=== PATIENT | female | born 1960 | race African-American/Black ===

== ENCOUNTER 2017-05-09 21:47 | Emergency (ER) | payer MEDICAID ==
[~2017-05-09] VITALS: Ht 175.3 cm; Wt 122.5 kg
[2017-05-09 22:42] LABS: Basophils # (auto) 0 uL; Basophils % (auto) 0.4 % (0.0-2.0); Eosinophils # (auto) 0.1 uL; Hematocrit 38.3 % (36.0-46.0); Hemoglobin 12.4 g/dL (12.2-16.2); Lymphocytes # (auto) 2.7 uL; Lymphocytes % (auto) 36.3 % (10.0-50.0); Mean Corpuscular Hemoglobin 27.4 pg (28.0-32.0); Mean Corpuscular Hgb Conc. 32.5 g/dL (32.0-36.0); Mean Corpuscular Volume 84.1 fL (80.0-100.0); Mean Platelet Volume 7.1 fL (6.9-10.8); Monocytes # (auto) 0.5 uL; Monocytes % (auto) 6.5 % (0.0-12.0); Neutrophils # (auto) 4.1 uL; Neutrophils % (auto) 55.8 % (37.0-80.0); Platelet Count (auto) 290 10^3/uL (140-450); Red Cell Distribution Width 14.1 % (11.8-14.3); White Blood Cell 7.4 10^3/uL (4.4-10.8)
[2017-05-09 22:59] LABS: Albumin 3.4 g/dL (3.4-5.0); Anion Gap 7 (5-15); Blood Urea Nitrogen 16 mg/dL (7-18); Calcium 9.5 mg/dL (8.5-10.1); Carbon Dioxide 30 mmol/L (21-32); Chloride 110 mmol/L (98-107); Glucose 143 mg/dL (74-106); Sodium 147 mmol/L (136-145)
[2017-05-09 23:01] LABS: Aspartate Aminotransferase 10 U/L (15-37); BUN/Creatinine Ratio 27.1; GFR African American 135 mL/min; GFR Non-African American 112 mL/min
[2017-05-09 23:10] LABS: B-Type Natriuretic Peptide 10.29 pg/mL (0-100); Temperature: 23.7 C (20.0-25.0)
[2017-05-09 23:15] LABS: Alkaline Phosphatase 105 U/L (45-117); Bilirubin, Total 0.2 mg/dL (0.2-1.0); Total Protein 7.6 g/dL (6.4-8.2)
[2017-05-10 07:45] VITALS: BP 130/75
[2017-05-10 08:00] LABS: Urine Bilirubin Negative (Negative); Urine Blood Negative /uL (Negative); Urine Ca Oxalate Crystal MANY (None Seen); Urine Color Yellow (Yellow); Urine Glucose Normal (Normal); Urine Ketone Negative (Negative); Urine Nitrite Negative (Negative); Urine RBC 1 /hpf (0 - 4); Urine Squamous Epithelial Cell FEW /hpf (<5); Urine Urobilinogen Normal (Negative)
== END 2017-05-10 08:14 | disposition home or self-care (01) ==
LOC: ER 21:56
DX: R42 Dizziness and giddiness (principal); Z98.51 Tubal ligation status
CPT/HCPCS: 36415; 70450; 71010; 80053; 81001; 82962; 83880; 84484; 85025

== ENCOUNTER 2017-08-12 19:12 | Emergency (ER) | payer MEDICAID ==
[~2017-08-12] VITALS: Ht 175.3 cm; Wt 120.2 kg
[2017-08-13 00:46] LABS: Basophils # (auto) 0 uL; Eosinophils # (auto) 0 uL; Hematocrit 43.1 % (36.0-46.0); Hemoglobin 14.1 g/dL (12.2-16.2); Lymphocytes # (auto) 1.6 uL; Lymphocytes % (auto) 39.1 % (10.0-50.0); Mean Corpuscular Hemoglobin 26.8 pg (28.0-32.0); Mean Corpuscular Hgb Conc. 32.6 g/dL (32.0-36.0); Monocytes # (auto) 0.4 uL; Monocytes % (auto) 8.6 % (0.0-12.0); Neutrophils # (auto) 2.1 uL; Neutrophils % (auto) 51.3 % (37.0-80.0); Nucleated Red Blood Cells % 0.2 %; Platelet Count (auto) 261 10^3/uL (140-450); Red Blood Cells 5.26 10^6/uL (4.0-5.20); Red Cell Distribution Width 14.3 % (11.8-14.3); White Blood Cell 4.1 10^3/uL (4.4-10.8)
[2017-08-13 01:05] LABS: Alkaline Phosphatase 112 U/L (45-117); Anion Gap 10 (5-15); Aspartate Aminotransferase 20 U/L (15-37); BUN/Creatinine Ratio 13.2; Blood Urea Nitrogen 9 mg/dL (7-18); Carbon Dioxide 26 mmol/L (21-32); Chloride 105 mmol/L (98-107); GFR African American 114 mL/min; GFR Non-African American 94 mL/min; Glucose 95 mg/dL (74-106); Potassium 3.8 mmol/L (3.5-5.1); Sodium 141 mmol/L (136-145)
[2017-08-13 01:06] LABS: Alanine Aminotransferase 27 U/L (13-56); Albumin 3.6 g/dL (3.4-5.0); Bilirubin, Total 0.4 mg/dL (0.2-1.0); Calcium 8.8 mg/dL (8.5-10.1); Total Protein 8.2 g/dL (6.4-8.2)
[2017-08-13 06:11] VITALS: BP 125/65
[2017-08-13 06:28] LABS: Urine Bacteria FEW /hpf (None Seen); Urine Blood 1+ /uL (Negative); Urine Mucus FEW (None Seen); Urine Specific Gravity 1.023 (1.001-1.035); Urine WBC 9 /hpf (0 - 5)
[2017-08-13] MEDS ORDERED: OSELTAMIVIR 75 MG CAP PO ONE (07:15)
== END 2017-08-13 09:01 | disposition home or self-care (01) ==
LOC: ER 19:12
DX: N39.0 Urinary tract infection, site not specified (principal); J11.1 Influenza due to unidentified influenza virus with other respiratory manifestations
CPT/HCPCS: 36415; 71046; 80053; 81001; 82962; 84484; 85025; 87400; 87804; 93005

== ENCOUNTER 2023-09-27 12:58 | Emergency (ER) | payer MEDICAID ==
[~2023-09-27] VITALS: Ht 175.3 cm; Wt 117.8 kg
[2023-09-27 13:55] LABS: Basophils # (auto) 0 10 ^3/uL (0-0.2); Chloride 109 mmol/L (98-107); Eosinophils # (auto) 0 10 ^3/uL (0-0.8); Eosinophils % (auto) 0.7 % (0.0-7.0); Hemoglobin 14.1 g/dL (12.2-16.2); Lymphocytes # (auto) 2.7 10 ^3/uL (0.4-5.4); Monocytes # (auto) 0.4 10 ^3/uL (0-1.3); Potassium 3.8 mmol/L (3.5-5.1); Red Cell Distribution Width 14.4 % (11.8-14.3); Sodium 139 mmol/L (136-145)
[2023-09-27 13:56] LABS: Anion Gap 5 (5-15); Calcium 9.8 mg/dL (8.5-10.1); Carbon Dioxide 25 mmol/L (20-30)
[2023-09-27 13:57] LABS: Basophils % (auto) 0.7 % (0.0-2.0); Hematocrit 43.8 % (36.0-46.0); Lymphocytes % (auto) 44.4 % (10.0-50.0); Mean Corpuscular Hemoglobin 27.2 pg (28.0-32.0); Mean Corpuscular Hgb Conc. 32.3 g/dL (32.0-36.0); Mean Corpuscular Volume 84.3 fL (80.0-100.0); Neutrophils # (auto) 2.9 10 ^3/uL (1.6-8.6); Neutrophils % (auto) 47.2 % (37.0-80.0); Nucleated Red Blood Cells % 0.1 %
[2023-09-27 14:01] LABS: Glucose 117 mg/dL (74-106)
[2023-09-27 14:01] LABS: Urine Bacteria FEW /hpf (None Seen); Urine Blood Negative /uL (Negative); Urine Clarity Clear (Clear); Urine Color Colorless (Yellow); Urine Hyaline Cast FEW /lpf (0 - 2); Urine Mucus FEW (None Seen); Urine Protein, UAD Negative (Negative); Urine Urobilinogen Normal (Negative); Urine WBC 1 /hpf (0 - 5)
[2023-09-27 14:11] LABS: BUN/Creatinine Ratio 8.2 (10.0-20.0); Blood Urea Nitrogen < 5 mg/dL (9-23)
[2023-09-27] MEDS ORDERED: PANT40TA2 PO (15:09)
[2023-09-27 16:30] VITALS: BP 145/76; PULSE 81; RESP 16; TEMP 98; O2SAT 94
[2023-09-27] MEDS: PANTOPRAZOLE 40 MG TAB PO ONE (16:36)
== END 2023-09-27 16:38 | disposition home or self-care (01) ==
LOC: ER 12:58
DX: K29.00 Acute gastritis without bleeding (principal); K80.20 Calculus of gallbladder without cholecystitis without obstruction; Z90.710 Acquired absence of both cervix and uterus; Z79.899 Other long term (current) drug therapy
CPT/HCPCS: 36415; 74176; 80048; 81001; 85025

== ENCOUNTER 2023-12-13 12:04 | Emergency (ER) | payer MEDICAID ==
[~2023-12-13] VITALS: Ht 175.3 cm; Wt 110.3 kg
[~2023-12-13 12:04] MED LIST: PANT40TA2 PO
[2023-12-13 13:20] VITALS: BP 138/59; PULSE 80; RESP 16; TEMP 98.1; O2SAT 98
[2023-12-13 16:04] LABS: Basophils # (auto) 0 10 ^3/uL (0-0.2); Basophils % (auto) 0.5 % (0.0-2.0); Eosinophils # (auto) 0 10 ^3/uL (0-0.8); Eosinophils % (auto) 0.5 % (0.0-7.0); Hematocrit 42.9 % (36.0-46.0); Hemoglobin 13.8 g/dL (12.2-16.2); Lymphocytes # (auto) 2.7 10 ^3/uL (0.4-5.4); Lymphocytes % (auto) 33.5 % (10.0-50.0); Mean Corpuscular Hemoglobin 27.2 pg (28.0-32.0); Mean Corpuscular Hgb Conc. 32.2 g/dL (32.0-36.0); Mean Corpuscular Volume 84.4 fL (80.0-100.0); Monocytes # (auto) 0.5 10 ^3/uL (0-1.3); Monocytes % (auto) 6.1 % (0.0-12.0); Neutrophils # (auto) 4.7 10 ^3/uL (1.6-8.6); Neutrophils % (auto) 59.4 % (37.0-80.0); Nucleated Red Blood Cells % 0.1 %; Red Blood Cells 5.09 10^6/uL (4.0-5.20); Red Cell Distribution Width 14.2 % (11.8-14.3)
[2023-12-13 16:09] LABS: Urine Bacteria None Seen /hpf (None Seen)
[2023-12-13 16:43] LABS: Urine Blood Negative /uL (Negative); Urine Clarity Clear (Clear); Urine Color Yellow (Yellow); Urine Mucus FEW (None Seen); Urine Protein, UAD Negative (Negative); Urine Specific Gravity 1.025 (1.001-1.035); Urine Urobilinogen Normal (Negative); Urine WBC 1 /hpf (0 - 5); Urine pH 5.5 (5.0-9.0)
[2023-12-13] MEDS ORDERED: HYDR-4902 PO (16:58)
== END 2023-12-13 17:03 | disposition home or self-care (01) ==
LOC: ER 12:04
DX: K80.20 Calculus of gallbladder without cholecystitis without obstruction (principal); Z98.51 Tubal ligation status; Z90.710 Acquired absence of both cervix and uterus
CPT/HCPCS: 36415; 76705; 81001; 83690; 85025

== ENCOUNTER 2024-11-04 15:41 | Inpatient (IN) | payer OTHER, MEDICAID ==
[~2024-11-04] VITALS: Ht 175.3 cm; Wt 118.5 kg
[~2024-11-04 15:41] MED LIST changes: +HYDR-4902 PO
--- NOTE | 2024-11-04 16:06 | ED.PDOC ---
History of Present Illness HPI Comments 64-year-old female came to the ER stating that she has been having dizziness for the past five months on and off. Dizziness is more so since last night. Aggravated by looking up. She has not seen any physician for her dizziness. Her blood pressure on arrival was 150/112 with a heart rate of 110. Patient d enies history of hypertension diabetes. Denies chest pain. She does have shortness a breath upon walking. Denies any other symptoms. Chief Complaint: Dizziness Time Seen by MD: 15:43 Primary Care Provider: [facility] [[email or web address]] Reviewed Notes: Nurses Notes, Medications, Allergies Allergies: Coded Allergies: NO KNOWN ALLERGIES (Unverified , 08/26/12) Home Meds Active Scripts Hydrocodone-Acetaminophen (Hydrocodone Bitartrate/AC 5-325 mg) 1 Tab Tab, 1 TAB PO DAILYP PRN for 3 Days, #3 TAB 0 Refills Prov:ANNEMARIE NINA NP 12/13/23 Pantoprazole Sodium Sesquihydr (Protonix) 40 Mg Tab, 40 MG PO DAILY for 10 Days, #10 TAB Prov:TANVI HUNT MD 09/27/23 Information Source: Patient Mode of Arrival: Ambulatory Severity: Moderate Timing: Days Duration: Since onset Past Medical History PAST MEDICAL HISTORY: Denies Surgical History: BTL, Hysterectomy, Tubal Ligation LICENSED MORTICIAN History: 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 Cysts Family History Family History: Unknown Social History Smoker: Non-Smoker Alcohol: Denies ETOH Use Drugs: Denies Drug Use Lives In: Home Constitutional: denies: chills, diaphoresis, fatigue, fever, malaise, sweats, weakness, others EENTM: denies: blurred vision, double vision, ear bleeding, ear discharge, ear drainage, ear pain, ear ringing, eye pain, eye redness, hearing loss, mouth pain, mouth swelling, nasal discharge, nose bleeding, nose congestion, nose pain, photophobia, tearing, throat pain, throat swelling, voice changes, others Respiratory: denies: cough, hemoptysis, orthopnea, SOB at rest, shortness of breath, SOB with excertion, stridor, wheezing, others Cardiovascular: denies: chest pain, dizzy spells, diaphoresis, Dyspnea on exertion, edema, irregular heart beat, left arm pain, lightheadedness, palpitations, PND, syncope, others Gastrointestinal: denies: abdomen distended, abdominal pain, blood streaked bowels, constipated, diarrhea, dysphagia, difficulty swallowing, hematemesis, melena, nausea, poor appetite, poor fluid intake, rectal bleeding, rectal pain, vomiting, others Genitourinary: denies: abnormal vagina bleeding, burning, dyspareunia, dysuria, flank pain, frequency, hematuria, incontinence, pain, , vagina discharge, urgency, others Neurological: reports: dizziness; denies: fainting, headache, left sided numbness, left sided weakness, numbness, paresthesia, pre-existing deficit, right sided numbness, right sided weakness, seizure, speech problems, tingling, tremors, weakness, others Musculoskeletal: denies: back pain, gout, joint pain, joint swelling, muscle pain, muscle stiffness, neck pain, others Integumetry: denies: bruises, change in color, change in hair/nails, dryness, laceration, lesions, lumps, rash, wounds, others Allergic/Immunocompromised: denies: Difficulty Healing, Frequent Infections, Hives, Itching, others Hematologic/Lymphatic: denies: anemia, blood clots, easy bleeding, easy bruising, swollen glands, others Endocrine: denies: excessive hunger, excessive sweating, excessive thirst, excessive urination, flushing, intolerance to cold, intolerance to heat, unexplained weight gain, unexplained weight loss, others Psychiatric: denies: anxiety, bipolar disorder, depression, hopeless, panic disorder, schizophrenia, sleepless, suicidal, others Physical Exam General Appearance: Moderate Distress HEENT: Normal ENT Inspection, Pharynx Normal, TMs Normal Neck: Full Range of Motion, Non-Tender, Normal, Normal Inspection Respiratory: Chest Non-Tender, Lungs Clear, No Accessory Muscle Use, No Respiratory Distress, Normal Breath Sounds Cardiovascular: No Edema, No JVD, No Murmur, No Gallop, Normal Peripheral Pulses, Regular Rate/Rhythm Breast Exam: Deferred Gastrointestinal: No Organomegaly, Non Tender, No Pulsatile Mass, Normal Bowel Sounds, Soft Genitalia: Deferred Pelvic: Deferred Rectal: Deferred Extremities: No calf tenderness, Normal capillary refill, Normal inspection, Normal range of motion, Non-tender, No pedal edema Musculoskeletal : Apperance: Normal Neurologic: Alert, mobile patrol officer II-XII nml as Tested, No Motor Deficits, Normal Affect, Normal Mood, No Sensory Deficits Cerebellar Function: Normal Reflexes: Normal Skin: Dry, Normal Color, Warm Peripheral Pulses: 3+ Radial (R), 3+ Radial (L) Lymphatic: No Adenopathy Was a procedure done? Was a procedure done?: No EKG EKG : Pulse Rate (adult): 96 [place]: Normal Cardiac Rhythm: NSR Differential Dx Considerations may include: Hypertension Electrolyte imbalance X-Ray, Labs, Meds, VS Vital Signs Date Time Temp Pulse Resp B/P (MAP) Pulse Ox O2 Delivery O2 Flow Rate FiO2 11/04/24 16:06 96 11/04/24 15:52 96.5 109 18 150/115 (127) 96 96.5 Lab Test 11/04/24 16:07 11/04/24 15:50 Range/Units White Blood Count 5.3 4.4-10.8 10^3/uL Red Blood Count 5.11 4.0-5.20 10^6/uL Hemoglobin 13.8 12.2-16.2 g/dL Hematocrit 43.3 36.0-46.0 % Mean Corpuscular Volume 84.6 80.0-100.0 fL Mean Corpuscular Hemoglobin 27.0 L 28.0-32.0 pg Mean Corpuscular Hemoglobin Concent 31.9 L 32.0-36.0 g/dL Red Cell Distribution Width 14.4 H 11.8-14.3 % Platelet Count 295 140-450 10^3/uL Mean Platelet Volume 7.3 6.9-10.8 fL Neutrophils (%) (Auto) 58.0 37.0-80.0 % Lymphocytes (%) (Auto) 33.6 10.0-50.0 % Monocytes (%) (Auto) 6.7 0.0-12.0 % Eosinophils (%) (Auto) 0.9 0.0-7.0 % Basophils (%) (Auto) 0.8 0.0-2.0 % Neutrophils # (Auto) 3.1 1.6-8.6 10 ^3/uL Lymphocytes # (Auto) 1.8 0.4-5.4 10 ^3/uL Monocytes # (Auto) 0.4 0-1.3 10 ^3/uL Eosinophils # (Auto) 0 0-0.8 10 ^3/uL Basophils # (Auto) 0 0-0.2 10 ^3/uL Nucleated Red Blood Cells 0.1 % Sodium Level 142 136-145 mmol/L Potassium Level 4.0 3.5-5.1 mmol/L Chloride Level 107 98-107 mmol/L Carbon Dioxide Level 29 20-31 mmol/L Anion Gap 6 5-15 Blood Urea Nitrogen 11 9-23 mg/dL Creatinine 0.68 0.550-1.02 mg/dL Glomerular Filtration Rate Calc 97 >90 mL/min BUN/Creatinine Ratio 16.2 10.0-20.0 Serum Glucose 153 H 74-106 mg/dL Calcium Level 10.4 8.7-10.4 mg/dL Troponin I High Sensitivity < 3 L </=34 ng/L POC Glucose 178 H 70-106 mg/dl Patient alert. Complaining of dizziness. Blood pressure elevated. Saturation pristine on room air. No leg swelling. Has shortness a breath upon walking. Possible hypertensive cardiomyopathy. She has not been taking care of herself. Establish intravenous access. Was given clonidine. EKG reviewed does not show any acute process. CT scan of the head reviewed does not show any acute changes. Blood sugar elevated. Explained to the patient. Continue cardiac monitoring. Time of 1ST Reevaluation: 16:03 Reevaluation 1ST: Unchanged Patient Education/Counseling: Diagnosis, Treatment, Prognosis Family Education/Counseling: No Family Present Departure 1 Departure Time of Disposition: 16:04 Impression: Primary Impression: Hypertensive emergency Additional Impressions: Autonomic disorder Uncontrolled diabetes mellitus Qualified Codes: E13.65 - Other specified diabetes mellitus with hyperglycemia Hypertensive cardiomegaly Disposition: ADMITTED INPATIENT Admit to: Med Surg Condition: Guarded Critical Care Note Critical Care Time?: Yes (90 min-critical care time only) Critical care comment: High blood pressure Stability Stability form required: No Heart Score Heart Score: Heart Score Response (Comments) Value History Slightly Suspicious 0 EKG Normal 0 Age >65 2 Risk Factors 1 or 2 risk factors 1 Troponin Normal limit 0 Total 3 TANVI HUNT MD Nov 04, 2024 16:06
[2024-11-04 16:24] LABS: Basophils # (auto) 0 10 ^3/uL (0-0.2); Eosinophils # (auto) 0 10 ^3/uL (0-0.8); Hematocrit 43.3 % (36.0-46.0); Lymphocytes # (auto) 1.8 10 ^3/uL (0.4-5.4); Monocytes # (auto) 0.4 10 ^3/uL (0-1.3); Red Cell Distribution Width 14.4 % (11.8-14.3); White Blood Cell 5.3 10^3/uL (4.4-10.8)
[2024-11-04 16:26] LABS: Basophils % (auto) 0.8 % (0.0-2.0); Chloride 107 mmol/L (98-107); Eosinophils % (auto) 0.9 % (0.0-7.0); Hemoglobin 13.8 g/dL (12.2-16.2); Lymphocytes % (auto) 33.6 % (10.0-50.0); Mean Corpuscular Hgb Conc. 31.9 g/dL (32.0-36.0); Mean Corpuscular Volume 84.6 fL (80.0-100.0); Monocytes % (auto) 6.7 % (0.0-12.0); Neutrophils # (auto) 3.1 10 ^3/uL (1.6-8.6); Nucleated Red Blood Cells % 0.1 %; Platelet Count (auto) 295 10^3/uL (140-450); Red Blood Cells 5.11 10^6/uL (4.0-5.20); Sodium 142 mmol/L (136-145)
[2024-11-04 16:27] LABS: Anion Gap 6 (5-15); Carbon Dioxide 29 mmol/L (20-31)
[2024-11-04 16:28] LABS: Calcium 10.4 mg/dL (8.7-10.4)
[2024-11-04 16:32] LABS: BUN/Creatinine Ratio 16.2 (10.0-20.0); Blood Urea Nitrogen 11 mg/dL (9-23)
[2024-11-04 16:33] LABS: Glucose 153 mg/dL (74-106)
--- NOTE | 2024-11-04 16:41 | DVH ---
EXAM: CT HEAD WITHOUT CONTRAST INDICATION: Dizzy TECHNIQUE: CT of the head without intravenous contrast. Coronal and sagittal reformatted images are s ubmitted. Radiation Dose : 1. Head: CT Dose: CTDI volume is 54.28 mGy. Dose-length product is 978.84 mGy*cm The dose indicators for CT are the volume Computed Tomography (CT) Dose Index (CTDIvol) and the Dose Length Product (DLP), and are measured in units of mGy and mGy-cm, respectively. These indicators are not patient dose, but values generated from the CT scanner acquisition factors. The report includes radiation exposure data for exposures received during this examination. All CT scans at this medical facility are performed using dose modulation techniques as appropriate to a performed exam including the following: Automated exposure control was utilized; adjustment of the MA and/or KV according to patient size; and use of iterative reconstruction technique. COMPARISON: None FINDINGS: There is no evidence of acute intracranial hemorrhage, extra-axial collection, mass effect, midline s hift, herniation or hydrocephalus. The ventricles, sulci and cisterns are age appropriate. The low-white differentiation is intact. The visualized paranasal sinuses and mastoid air cells are clear. No depressed calvarial fracture. The surrounding soft tissues are unremarkable. IMPRESSION: 1. No evidence of acute intracranial abnormality. HS:Y
--- NOTE | 2024-11-04 19:00 | ECG ---
[facility] Test Date: 2024-11-04 Test Time: 15:56:42 Pat Name: MICHEAL ODOM Department: ER Room: 0298 Gender: F Cotton Tier: [place] : 1960 Requested By: TANIV HUNT Order Number: [id number] Reading MD: Flaco Ahmadi Measurements Intervals [place] Rate: 96 P: 55 FL: 169 QRS: 17 QRSD: 91 T: 38 QT: 350 QTc: 443 Interpretive Statements Sinus rhythm Abnormal R-wave progression, early transition Electronically Signed On 11-07-2024 20:56:09 PDT by Flaco Ahmadi Please click the below link to view image of tracing.
[2024-11-04] MEDS: cloNIDine HCL 0.1 MG TAB PO ONE (19:59)
--- NOTE | 2024-11-04 20:20 | DVHHP2 ---
Admitting Diagnosis: Dizziness History of Present Illness 64-year-old female came to the ER stating that she has been having dizziness for the past five months on and off. Dizziness is more so since last night. Aggravated by looking up. She has not seen any physician for her dizziness. Her blood pressure on arrival was 150/112 with a heart rate of 110. Patient denies history of hypertension diabetes. Denies chest pain. She does have shortness a breath upon walking. Denies any other symptoms. PAST MEDICAL HISTORY: Denies Surgical History: BTL, Hysterectomy, Tubal Ligation SUTURE WINDER HAND History: Ovarian Cysts Family History Family History: Unknown Social History Smoker: Non-Smoker Alcohol: Denies ETOH Use Drugs: Denies Drug Use Lives In: Home Allergies: Coded Allergies: NO KNOWN ALLERGIES (Unverified , 08/26/12) Home Meds Active Scripts Hydrocodone-Acetaminophen (Hydrocodone Bitartrate/AC 5-325 mg) 1 Tab Tab, 1 TAB PO DAILYP PRN for 3 Days, #3 TAB 0 Refills Prov:ANNEMARIE NINA NP 12/13/23 Pantoprazole Sodium Sesquihydr (Protonix) 40 Mg Tab, 40 MG PO DAILY for 10 Days, #10 TAB Prov:TANVI HUNT MD 09/27/23 Vital Signs Vital Signs Date Time Temp Pulse Resp B/P (MAP) Pulse Ox O2 Delivery O2 Flow Rate FiO2 11/04/24 19:59 139/74 11/04/24 19:50 97.0 101 15 98 97.0 Physical Exam Generally 64 years old woman, morbidly obese, sitting on chair. No apparent distress HEENT-atraumatic, normocephalic Heart-regular rate and rhythm Lungs clear to auscultate bilaterally Abdomen soft nontender nondistended Musculoskeletal-no edema cyanosis Neuro-AO x3, strength intact, sensory intact Results Labs Test 11/04/24 16:07 11/04/24 15:50 Range/Units White Blood Count 5.3 4.4-10.8 10^3/uL Red Blood Count 5.11 4.0-5.20 10^6/uL Hemoglobin 13.8 12.2-16.2 g/dL Hematocrit 43.3 36.0-46.0 % Mean Corpuscular Volume 84.6 80.0-100.0 fL Mean Corpuscular Hemoglobin 27.0 L 28.0-32.0 pg Mean Corpuscular Hemoglobin Concent 31.9 L 32.0-36.0 g/dL Red Cell Distribution Width 14.4 H 11.8-14.3 % Platelet Count 295 140-450 10^3/uL Mean Platelet Volume 7.3 6.9-10.8 fL Neutrophils (%) (Auto) 58.0 37.0-80.0 % Lymphocytes (%) (Auto) 33.6 10.0-50.0 % Monocytes (%) (Auto) 6.7 0.0-12.0 % Eosinophils (%) (Auto) 0.9 0.0-7.0 % Basophils (%) (Auto) 0.8 0.0-2.0 % Neutrophils # (Auto) 3.1 1.6-8.6 10 ^3/uL Lymphocytes # (Auto) 1.8 0.4-5.4 10 ^3/uL Monocytes # (Auto) 0.4 0-1.3 10 ^3/uL Eosinophils # (Auto) 0 0-0.8 10 ^3/uL Basophils # (Auto) 0 0-0.2 10 ^3/uL Nucleated Red Blood Cells 0.1 % Sodium Level 142 136-145 mmol/L Potassium Level 4.0 3.5-5.1 mmol/L Chloride Level 107 98-107 mmol/L Carbon Dioxide Level 29 20-31 mmol/L Anion Gap 6 5-15 Blood Urea Nitrogen 11 9-23 mg/dL Creatinine 0.68 0.550-1.02 mg/dL Glomerular Filtration Rate Calc 97 >90 mL/min BUN/Creatinine Ratio 16.2 10.0-20.0 Serum Glucose 153 H 74-106 mg/dL Calcium Level 10.4 8.7-10.4 mg/dL Troponin I High Sensitivity < 3 L </=34 ng/L POC Glucose 178 H 70-106 mg/dl Primary Diagnosis Hypertensive encephalopathy Anxiety Plan Patient states she does not take blood pressure medication at home. The patient's blood pressure normally within normal range with a history of hypertension Patient states she was asked to get elective surgery regular rate and cholecystectomy due to constant right upper quadrant pain. Patient states that currently she is in pain which exacerbated pressure Blood pressure currently 130 over 70s. The patient did not receive antihypertensive medication in ED Pain control Hold off antihypertensives Bowel regimen Antiemetic Monitor blood pressure Cardiac diet Full code Lovenox for DVT prophylaxis Plan discussed with: Patient Problems List: (1) Hypertensive encephalopathy Date of Service: Nov 04, 2024 Billing Provider: DENISHA CHONG MD Common Visit Codes: [id number] INP/OBS CARE (MOD) DENISHA CHONG MD Nov 04, 2024 20:20
[2024-11-04] MEDS ORDERED: DOCUSATE SOD 100 MG CAP PO PRN (20:30)
[2024-11-04] MEDS ORDERED: HYDROmorphone HCL 2 MG/ML VL/or syr IV PRN (20:30)
[2024-11-04] MEDS ORDERED: ONDANSETRON HCL 4 MG/2 ML VIAL IV PRN (20:30)
[2024-11-04] MEDS ORDERED: ACETAMINOPHEN 325 MG TAB PO PRN (20:30)
[2024-11-04] MEDS: SODIUM CHLOR 0.9% PF (SALINE LOCK) 10ML VIAL/SYR IV SCH (22:00)
[2024-11-05 06:26] LABS: Basophils # (auto) 0 10 ^3/uL (0-0.2); Basophils % (auto) 0.4 % (0.0-2.0); Eosinophils # (auto) 0.1 10 ^3/uL (0-0.8); Eosinophils % (auto) 1.1 % (0.0-7.0); Hematocrit 44.7 % (36.0-46.0); Hemoglobin 14.5 g/dL (12.2-16.2); Lymphocytes # (auto) 2.6 10 ^3/uL (0.4-5.4); Lymphocytes % (auto) 36.2 % (10.0-50.0); Mean Corpuscular Hemoglobin 27.3 pg (28.0-32.0); Mean Corpuscular Hgb Conc. 32.4 g/dL (32.0-36.0); Mean Corpuscular Volume 84.3 fL (80.0-100.0); Monocytes # (auto) 0.5 10 ^3/uL (0-1.3); Monocytes % (auto) 6.6 % (0.0-12.0); Neutrophils # (auto) 3.9 10 ^3/uL (1.6-8.6); Neutrophils % (auto) 55.7 % (37.0-80.0); Nucleated Red Blood Cells % 0.3 %; Platelet Count (auto) 300 10^3/uL (140-450); Red Cell Distribution Width 14.2 % (11.8-14.3); White Blood Cell 7.1 10^3/uL (4.4-10.8)
[2024-11-05 06:30] LABS: Alanine Aminotransferase 17 U/L (7-40); Alkaline Phosphatase 115 U/L (46-116); Anion Gap 9 (5-15); BUN/Creatinine Ratio 16.1 (10.0-20.0); Carbon Dioxide 26 mmol/L (20-31); Chloride 105 mmol/L (98-107); Potassium 3.7 mmol/L (3.5-5.1); Sodium 140 mmol/L (136-145); Total Protein 8.1 g/dL (5.7-8.2)
[2024-11-05 06:31] LABS: Aspartate Aminotransferase 13 U/L (13-40); Bilirubin, Total 0.6 mg/dL (0.2-1.0)
[2024-11-05 06:35] LABS: Albumin 4.9 g/dL (3.2-4.8); Blood Urea Nitrogen 9 mg/dL (9-23); Calcium 10.4 mg/dL (8.7-10.4); Glucose 111 mg/dL (74-106)
[2024-11-05 08:02] VITALS: PULSE 88; RESP 17; O2SAT 96
[2024-11-05] MEDS: ENOXAPARIN SOD 40 MG/0.4 ML SYRINGE SC SCH (11:58)
[2024-11-05 12:46] LABS: Urine Bacteria None Seen /hpf (None Seen)
[2024-11-05 12:56] LABS: Urine Blood Negative /uL (Negative); Urine Clarity Clear (Clear); Urine Color Light-Yellow (Yellow); Urine Protein, UAD Negative (Negative); Urine Specific Gravity 1.013 (1.001-1.035); Urine Squamous Epithelial Cell FEW /hpf (<5); Urine Urobilinogen Normal (Negative); Urine WBC 13 /HPF (0-5); Urine pH 6.5 (5.0-9.0)
--- NOTE | 2024-11-05 14:26 | DVH ---
INDICATION: rule out acute cholecystitis TECHNIQUE: Multiple real-time sonographic images were obtained of the right upper quadrant. COMPARISON: US ABDOMEN LIMITED on DOS: 12/13/23 FINDINGS: The liver demonstrates heterogeneous echotexture without focal mass lesions. The liver davian ures 20cm. There is no intrahepatic or extrahepatic ductal dilatation. The common duct measures 0. 5 mm. Gallstones are present The gallbladder wall measures 0.3 mm and is within normal limits. The right kidney measures 13 cm. The right kidney is normal in contour, size, and shape. The echogen icity is normal. There is no hydronephrosis. The pancreas is not well visualized due to overlying bowel gas. IMPRESSION: Cholelithiasis Hepatic steatosis/hepatomegaly. Trace right pleural effusion.
--- NOTE | 2024-11-05 14:56 | DVHPNRES ---
Progress Note Date Seen: Nov 05, 2024 Resident Creating Document: KELLIE CARPENTER RESIDENT Has the PT tested + for MRSA If YES, has PT been informed?: No Medical Necessity Reason Pt with a Central, PICC or Fol: No Medical Necessity Reason History of Present Illness 64-year-old female came to the ER stating that she has been having dizziness for the past five months on and off. Dizziness is more so since last night. Aggravated by looking up. She has not seen any physician for her dizziness. Her blood pressure on arrival was 150/112 with a heart rate of 110. She mentioned to me that she has blurry vision. Patient denies history of hypertension diabetes. Denies chest pain. She does have shortness a breath upon walking. PAST MEDICAL HISTORY: With the cholecystitis, diverticulitis, neck pain, peripheral neuropathy Surgical History: BTL, Hysterectomy, Tubal Ligation EVENT SET UP SPECIALIST History: Ovarian Cysts Subjective Review of Systems Constitutional: Denies fever no chills no feeling of malaise HEENT: Denies headache, ear pain, ear discharges, conjunctivitis, nasal discharge throat pain Cardiovascular: Denies chest pain, palpitation, orthopnea, PND, or pedal edema Respiratory: Denies shortness of breath, cough cough, sputum production, hemoptysis, GI: Right tip of the shoulder pain, Abdominal pain resolved, nausea, No vomiting, diarrhea, hematemesis, hematochezia, : Denies frequency, urgency, hematuria, Endocrine: Denies unintentional weight gain or weight loss, feeling of hot flashes, Elder: Denies easy bruising, bleeding disorders, epistaxis Musculoskeletal: Denies joint pains, muscle aches Psych: No evidence of depression, domenica, suicidal ideation Objective vital signs Vital Sign Date Time Temp Pulse Resp B/P (MAP) Pulse Ox O2 Delivery O2 Flow Rate FiO2 11/05/24 11:48 116 189/107 11/05/24 08:02 98.5 17 96 98.5 11/05/24 08:02 Room Air* 0 21 medications Current Medications Medications Dose Ordered Sig/Jhon Route Start Time Stop Time Status Last Admin Dose Admin Sodium Chloride 10 ml Q8HR IV 11/04/24 22:00 11/05/24 06:06 10 ML Docusate Sodium 100 mg BIDPRN PRN PO 11/04/24 20:30 Acetaminophen 650 mg Q6HP PRN PO 11/04/24 20:30 Acetaminophen/ Hydrocodone Bitart 1 tab Q4HP PRN PO 11/04/24 20:30 Hydromorphone HCl 0.5 mg Q4HP PRN IV 11/04/24 20:30 Ondansetron HCl 4 mg Q4HP PRN IV 11/04/24 20:30 Enoxaparin Sodium 40 mg DAILY SC 11/05/24 10:00 11/05/24 11:58 40 MG Lisinopril 5 mg DAILY PO 11/06/24 10:00 Examination General Appearance: Alert, Oriented X3, Cooperative, No acute distress, Dizziness on walking HEENT: Atraumatic, PERRLA, EOMI, Mucous membrane moist/pink Respiratory: Clear to auscultation, Normal air movement Cardiovascular: Regular rate, Normal S1, Normal S2, No murmurs, no chest wall tenderness Abdominal: NO distention, no tenderness, bowel sounds present, no scars noted Extremities: No clubbing, No cyanosis, No edema, Normal pulses, No tenderness/swelling Skin: No rashes, No breakdown, No significant lesion Neuro: Normal gait, Normal speech, Strength at 5/5 X4 ext, Normal tone, Sensation intact, Cranial nerves 3-12 NL, Reflexes 2+ Psych/Mental Status: Mental status NL, Mood NL laboratory and microbiology Laboratory Tests 11/05/24 05:45 Test 11/05/24 05:45 Range/Units Serum Glucose 111 H 74-106 mg/dL Problem List/Assessment/Plan Problem List/Assessment/Plan Assessment Hypertensive urgency --> lisinopril 5 mg daily --> monitor closely and increase the blood pressure medication as needed Dizziness --> currently on meclizine --> fairly be secondary to the hypertensive urgency as well we will monitor closely as the blood pressure comes down. Cholelithiasis --> follow up with the surgeon outpatient for surgical evaluation and removal of the gallbladder -->Currently not inflamed Obesity Grade 2 --> BMI: 37.4 --> Advise more healthy life style modification Asymptomatic pyuria Of care discussed more than 40 20 minutes: Full code Case and plan discussed with Dr. Roberson Plan discussed with: Patient My Orders My Orders Orders - KELLIE CARPENTER RESIDENT Procedure Category Date Status Time Gallbladder US 11/05/24 Resulted 12:35 Lisinopril Tablet PHA 11/06/24 In Process (Zestril Tablet) 10:00 Echo 2d Mode Cardiac US 11/05/24 Logged DOP 12:50 Date of Service: Nov 05, 2024 Billing Provider: MEME ROBERSON MD Common Visit Codes: [id number] INP/OBS CARE(HIGH) KELLIE CARPENTER RESIDENT Nov 05, 2024 14:56 MEME ROBERSON MD Nov 07, 2024 22:10
[2024-11-05] MEDS: LISINOPRIL 5 MG TAB PO ONE (18:35)
[2024-11-05 19:05] VITALS: BP_SYST 115; BP_SYST 99; BP_DIAS 65; BP_DIAS 67; PULSE 82; PULSE 99; RESP 17; RESP 18; TEMP 97.5; TEMP 98.4; O2SAT 93; O2SAT 97
[2024-11-05 21:00] VITALS: BP 113/67; PULSE 80; RESP 18; TEMP 97.6; O2SAT 96
[2024-11-05 22:30] VITALS: BP 143/81; PULSE 91; RESP 16; TEMP 98.2; O2SAT 99
[2024-11-06] VITALS (9 sets, daily range): BP systolic 99–130; BP diastolic 59–91; PULSE 61–102; RESP 16–20; TEMP 97.7–98.7; O2SAT 93–98
[2024-11-06] MEDS ORDERED: MECL-90 PO (00:30)
[2024-11-06] MEDS ORDERED: IBUP-1455 PO (00:30)
[2024-11-06] MEDS ORDERED: MECL-126 PO (00:30)
[2024-11-06 08:42] LABS: Basophils # (auto) 0 10 ^3/uL (0-0.2); Basophils % (auto) 0.3 % (0.0-2.0); Eosinophils # (auto) 0.1 10 ^3/uL (0-0.8); Eosinophils % (auto) 0.8 % (0.0-7.0); Hematocrit 43.1 % (36.0-46.0); Hemoglobin 14.3 g/dL (12.2-16.2); Lymphocytes # (auto) 2.8 10 ^3/uL (0.4-5.4); Lymphocytes % (auto) 38.2 % (10.0-50.0); Mean Corpuscular Hemoglobin 27.8 pg (28.0-32.0); Mean Corpuscular Hgb Conc. 33.1 g/dL (32.0-36.0); Monocytes # (auto) 0.4 10 ^3/uL (0-1.3); Neutrophils # (auto) 4.1 10 ^3/uL (1.6-8.6); Neutrophils % (auto) 55.7 % (37.0-80.0); Nucleated Red Blood Cells % 0.1 %; Platelet Count (auto) 296 10^3/uL (140-450); Red Blood Cells 5.13 10^6/uL (4.0-5.20); Red Cell Distribution Width 14.3 % (11.8-14.3); White Blood Cell 7.4 10^3/uL (4.4-10.8)
[2024-11-06 08:57] LABS: Alanine Aminotransferase 16 U/L (7-40); Albumin 4.5 g/dL (3.2-4.8); Alkaline Phosphatase 114 U/L (46-116); Anion Gap 10 (5-15); Aspartate Aminotransferase 13 U/L (13-40); BUN/Creatinine Ratio 15.6 (10.0-20.0); Bilirubin, Total 0.7 mg/dL (0.2-1.0); Blood Urea Nitrogen 10 mg/dL (9-23); Calcium 10.1 mg/dL (8.7-10.4); Carbon Dioxide 26 mmol/L (20-31); Chloride 106 mmol/L (98-107); Potassium 3.6 mmol/L (3.5-5.1); Sodium 142 mmol/L (136-145); Total Protein 7.4 g/dL (5.7-8.2)
[2024-11-06 08:58] LABS: Glucose 127 mg/dL (74-106)
[2024-11-06] MEDS: ACETAMINOPHEN 325 MG TAB PO ONE (10:27)
[2024-11-06] MEDS: LISINOPRIL 5 MG TAB PO SCH (10:28)
[2024-11-06] MEDS: SODIUM CHLORIDE 0.9% 1,000 ML IV SCH ×2 (10:37→18:05)
--- NOTE | 2024-11-06 10:54 | DVH ---
Exam: CT CT AB PEL WO CON-NO ORAL OR IV History: rule acute diverticulitis Comparison Study: CT CT AB PEL WO CON-NO ORAL OR IV on DOS: 09/27/23 Technique: Multidetector spiral CT of the abdomen and pelvis was performed from lung bases to pubic symphysis. Imaging was performed without IV contrast. Axial, coronal and sagittal multiplanar reform ats were obtained from the axial data set by the technologist. Radiation dose : Abdomen/Pelvis: CTDIvol 26.76 mGy, DLP 1484.0 mGy*cm. Findings: Evaluation of solid organs is limited due to lack of intravenous contrast use. Lung Bases: No acute or significant lung base finding. Normal heart size. No pleural or pericardial effusion. Liver: The liver is normal in size. No focal lesions. Gallbladder and biliary Tree: Cholelithiasis noted without secondary findings of cholecystitis or rama iary obstruction. Spleen: Unremarkable Pancreas: The pancreas is grossly normal in appearance. Adrenal Glands: Right adrenal nodules measuring 20 mm and 10 mm. Kidneys: Kidneys are grossly normal without calculi or hydronephrosis. Bladder: Grossly unremarkable for degree of distention. Bowel: The stomach is grossly normal in appearance. There is mild wall thickening of the descending c olon with adjacent stranding. There is an abnormal loop of small bowel in the right upper quadrant w ith wall thickening, adjacent stranding and adjacent prominent mesenteric lymph nodes. Normal appendi x is visualized in the right lower quadrant without findings of appendicitis. Ascites: Trace perisplenic ascites. Lymphadenopathy: Prominent mesenteric lymph nodes, largest measuring up to 10 mm in short axis. Abdominal wall and Mesentery: Postsurgical changes. Vasculature: The visualized abdominal aorta is normal in size and caliber. Evaluation of abdominal a nd pelvic vessels is limited due to lack of intravenous contrast. Pelvic Organs: Unremarkable Musculoskeletal: No aggressive focal bony lesions, acute fractures or dislocation. IMPRESSION: 1. Abnormal loop of small bowel in the right upper quadrant with associated wall thickening, mesenter ic stranding, and mesenteric lymphadenopathy. Findings could be infectious / inflammatory. Underlying neoplasm is not entirely excluded. Clinical correlation and continued follow-up is recommended. Thi s could be further evaluated with intravenous and/or oral contrast. Consider small-bowel follow-throu gh. 2. Mild wall thickening of the descending colon with adjacent stranding could be related to colitis or underdistention. Trace perisplenic ascites. Cholelithiasis. Stable right adrenal nodules. Radiation optimization: All CT scans at this facility use at least one of these dose optimization kashmir hniques: Automated exposure control mA and/or kV adjustment per patient size (includes targeted exams where dose is matched to clinical indication) or iterative reconstruction. HS:Y
[2024-11-06] MEDS: cefTRIAXone 1GM/50ML D5W 50 ML IV ONE (18:05)
--- NOTE | 2024-11-06 18:29 | DVHPNRES ---
Progress Note Date Seen: Nov 06, 2024 Resident Creating Document: KELLIE CARPENTER RESIDENT Has the PT tested + for MRSA If YES, has PT been informed?: No Medical Necessity Reason Pt with a Central, PICC or Fol: No Medical Necessity Reason PN 11/05/2024 64-year-old female came to the ER stating that she has been having dizziness for the past five months on and off. Dizziness is more so since last night. Aggravated by looking up. She has not seen any physician for her dizziness. Her blood pressure on arrival was 150/112 with a heart rate of 110. She mentioned to me that she has blurry vision. Patient denies history of hypertension diabetes. Denies chest pain. She does have shortness a breath upon walking. 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 Patient initially presented with dizziness and head. Patient found to have hypertensive urgency. This morning her HTN was better, but the patient complained about left lower abdomen. CT abdomen revealed Abnormal loop of small bowel in the right upper quadrant with associated wall thickening, mesenteric stranding, and mesenteric lymphadenopathy. Findings could be infectious / inflammatory. Underlying neoplasm is not entirely excluded. Clinical correlation and continued follow-up is recommended. This could be further evaluated with intravenous and/or oral contrast. Consider small-bowel follow-through. Mild wall thickening of the descending colon with adjacent stranding could be related to colitis or underdistention. Trace perisplenic ascites. Will start her on antibiotics. Subjective Review of Systems Constitutional: Denies fever no chills no feeling of malaise, headache HEENT: Denies headache, ear pain, ear discharges, conjunctivitis, nasal discharge throat pain Cardiovascular: Denies chest pain, palpitation, orthopnea, PND, or pedal edema Respiratory: Denies shortness of breath, cough cough, sputum production, hemoptysis, GI: Denies abdominal pain, nausea, vomiting, diarrhea, hematemesis, hematochezia, left lower quadrant pain : Denies frequency, urgency, hematuria, Endocrine: Denies unintentional weight gain or weight loss, feeling of hot flashes, Elder: Denies easy bruising, bleeding disorders, epistaxis Musculoskeletal: Denies joint pains, muscle aches Psych: No evidence of depression, domenica, suicidal ideation Objective vital signs Vital Sign Date Time Temp Pulse Resp B/P (MAP) Pulse Ox O2 Delivery O2 Flow Rate FiO2 11/06/24 16:17 98.7 76 18 95 11/06/24 13:00 130/73 (92) 11/06/24 08:00 Room Air* 0 21 Total Intake and Output 11/05/24 11/05/24 11/06/24 15:00 23:00 07:00 Intake Total 100 ml Balance 100 ml medications Current Medications Medications Dose Ordered Sig/John Route Start Time Stop Time Status Last Admin Dose Admin Sodium Chloride 10 ml Q8HR IV 11/04/24 22:00 11/06/24 13:40 10 ML Docusate Sodium 100 mg BIDPRN PRN PO 11/04/24 20:30 Acetaminophen 650 mg Q6HP PRN PO 11/04/24 20:30 Cancel Acetaminophen/ Hydrocodone Bitart 1 tab Q4HP PRN PO 11/04/24 20:30 Hydromorphone HCl 0.5 mg Q4HP PRN IV 11/04/24 20:30 Ondansetron HCl 4 mg Q4HP PRN IV 11/04/24 20:30 Enoxaparin Sodium 40 mg DAILY SC 11/05/24 10:00 11/06/24 10:28 40 MG Lisinopril 5 mg DAILY PO 11/06/24 10:00 11/06/24 10:28 5 MG Acetaminophen 325 mg Q4HP PRN PO 11/06/24 08:00 Sodium Chloride 1,000 ml @ 125 mls/hr Q8H IV 11/06/24 08:00 11/06/24 16:10 125 MLS/HR Examination General Appearance: Alert, Oriented X3, Cooperative, No acute distress HEENT: Atraumatic, PERRLA, EOMI, Mucous membrane moist/pink Respiratory: Clear to auscultation, Normal air movement Cardiovascular: Regular rate, Normal S1, Normal S2, No murmurs, no chest wall tenderness Abdominal: Left lower quadrant tenderness, bowel sounds present Extremities: No clubbing, No cyanosis, No edema, Normal pulses, No tenderness/swelling Skin: No rashes, No breakdown, No significant lesion Neuro: Normal gait, Normal speech, Strength at 5/5 X4 ext, Normal tone, Sensation intact, Cranial nerves 3-12 NL, Reflexes 2+ Psych/Mental Status: Mental status NL, Mood NL laboratory and microbiology Laboratory Tests 11/06/24 07:16 Test 11/06/24 07:16 Range/Units Serum Glucose 127 H 74-106 mg/dL Problem List/Assessment/Plan Problem List/Assessment/Plan Assessment Hypertensive urgency--> Improved --> Continue lisinopril 5 mg daily --> monitor closely and increase the blood pressure medication as needed Dizziness --> Continue on meclizine --> Likely secondary to the hypertensive urgency as well we will monitor closely as the blood pressure comes down. Cholelithiasis --> follow up with the surgeon outpatient for surgical evaluation and removal of the gallbladder -->Currently not inflamed --> Follow up with the surgeon outpatient for elective cholecystectomy Obesity Grade 2 --> BMI: 37.4 --> Advise more healthy life style modification Asymptomatic pyuria Possible colitis vs ?neoplasm -->CT abdomen: Abnormal loop of small bowel in the right upper quadrant with associated wall thickening, mesenteric stranding, and mesenteric lymphadenopathy. Findings could be infectious / inflammatory. Underlying neoplasm is not entirely excluded. Clinical correlation and continued follow-up is recommended. This could be further evaluated with intravenous and/or oral contrast. Consider small-bowel follow-through. Mild wall thickening of the descending colon with adjacent stranding could be related to colitis or underdistention. Trace perisplenic ascites. --> Ceftriaxone and Metronidazole --> NPO --> Consider GI consult Hepatic steatosis/hepatomegaly -> Encourage weight Of care discussed more than 20 minutes: Full code Case and plan discussed with Dr. Roberson Plan discussed with: Patient My Orders My Orders Orders - KELLIE CARPENTER RESIDENT Procedure Category Date Status Time Ct Ab Pel Wo Con-No CT 11/06/24 Resulted Oral Or Iv 08:00 Acetaminophen Tablet PHA 11/06/24 In Process (Tylenol Tablet) 08:00 Sodium Chloride 0.9% PHA 11/06/24 In Process 08:00 Schedule For Dc SHAQ 11/06/24 In Process Clinic F/U 15:09 Ceftriaxone 1gm/50ml PHA 11/06/24 In Process D5w (Rocephin) 18:00 Ceftriaxone 1gm/50ml PHA 11/07/24 In Process D5w (Rocephin) 09:00 Metronidazole PHA 11/06/24 In Process 500mg/100ml (Flagyl 18:30 Sodium Chloride 0.9% PHA 11/06/24 In Process 18:00 Npo (Nothing By DIET 11/06/24 Transmitted Mouth) Diet Dinner Lipase LAB 11/06/24 Logged 17:50 Metronidazole PHA 11/07/24 In Process 500mg/100ml (Flagyl 02:00 Date of Service: Nov 06, 2024 Billing Provider: MEME ROBERSON MD Common Visit Codes: [id number] INP/OBS CARE(HIGH) KELLIE CARPENTER RESIDENT Nov 06, 2024 18:29 MEME ROBERSON MD Nov 07, 2024 22:24
[2024-11-06] MEDS: metroNIDAZOLE 500MG/100ML 100 ML IV ONE (18:30)
[2024-11-06] MEDS: ACETAMINOPHEN 325 MG TAB PO PRN (21:25)
[2024-11-07 01:00] VITALS: BP 115/69; PULSE 74; RESP 18; TEMP 98.6; O2SAT 98
[2024-11-07] MEDS: metroNIDAZOLE 500MG/100ML 100 ML IV SCH (02:20)
[2024-11-07 05:00] VITALS: BP 107/53; PULSE 69; RESP 18; TEMP 98.3; O2SAT 84
[2024-11-07 08:44] VITALS: BP 103/60; PULSE 6; PULSE 60; RESP 19; TEMP 98.6; O2SAT 94
[2024-11-07 09:06] LABS: Basophils # (auto) 0 10 ^3/uL (0-0.2); Basophils % (auto) 0.5 % (0.0-2.0); Eosinophils # (auto) 0.1 10 ^3/uL (0-0.8); Eosinophils % (auto) 1.3 % (0.0-7.0); Hematocrit 41.1 % (36.0-46.0); Hemoglobin 12.9 g/dL (12.2-16.2); Lymphocytes % (auto) 45.4 % (10.0-50.0); Mean Corpuscular Hgb Conc. 31.4 g/dL (32.0-36.0); Mean Corpuscular Volume 85.8 fL (80.0-100.0); Monocytes # (auto) 0.5 10 ^3/uL (0-1.3); Monocytes % (auto) 7.6 % (0.0-12.0); Neutrophils % (auto) 45.2 % (37.0-80.0); Nucleated Red Blood Cells % 0.1 %; Platelet Count (auto) 268 10^3/uL (140-450); Red Blood Cells 4.79 10^6/uL (4.0-5.20); Red Cell Distribution Width 14.3 % (11.8-14.3); White Blood Cell 6.6 10^3/uL (4.4-10.8)
[2024-11-07 09:18] LABS: Alanine Aminotransferase 16 U/L (7-40); Alkaline Phosphatase 107 U/L (46-116); Anion Gap 8 (5-15); Aspartate Aminotransferase 15 U/L (13-40); BUN/Creatinine Ratio 20.4 (10.0-20.0); Blood Urea Nitrogen 11 mg/dL (9-23); Calcium 9.5 mg/dL (8.7-10.4); Carbon Dioxide 25 mmol/L (20-31); Potassium 4.2 mmol/L (3.5-5.1); Sodium 142 mmol/L (136-145); Total Protein 6.3 g/dL (5.7-8.2)
[2024-11-07 09:19] LABS: Bilirubin, Total 0.5 mg/dL (0.2-1.0); Chloride 109 mmol/L (98-107); Glucose 109 mg/dL (74-106)
[2024-11-07] MEDS: cefTRIAXone 1GM/50ML D5W 50 ML IV SCH (09:29)
[2024-11-07] MEDS: HYDROcodone-ACET 5/325MG TAB PO PRN (09:30)
[2024-11-07 13:04] VITALS: BP 113/68; PULSE 75; RESP 17; TEMP 98.4; O2SAT 96
[2024-11-07] MEDS ORDERED: ACET-1882 PO (13:35)
[2024-11-07] MEDS ORDERED: LEVO750T40 PO (13:35)
[2024-11-07] MEDS ORDERED: LISI-275 PO (13:35)
[2024-11-07] MEDS ORDERED: DOCU-265 PO (13:35)
[2024-11-07] MEDS ORDERED: METR-344 PO (13:36)
--- NOTE | 2024-11-07 14:17 | DVHDSRES ---
Discharge Summary Date of Admission Resident Creating Document: KELLIE CARPENTER RESIDENT Nov 04, 2024 at 20:20 Date of Discharge: Nov 07, 2024 Admitting Diagnosis Dizziness and hypertensive urgency Labs/Diagnostic Data: PATIENT: MICHEAL ODOM ACCT: [id number] UNIT: [id number] : 1960 LOC: [facility] ROOM / BED: [facility] / A AGE / SEX: 64 / F ADM STATUS: ADM IN SERVICE 0800 ORDERING PHYSICIAN: KELLIE CARPENTER PROCEDURE(s): ABPL - CT AB PEL WO CON-NO ORAL OR IV REASON: rule acute diverticulitis ORDER NUMBER(s): [id number], ACCESSION NUMBER(s): [id number] Exam: CT CT AB PEL WO CON-NO ORAL OR IV History: rule acute diverticulitis Comparison Study: CT CT AB PEL WO CON-NO ORAL OR IV on DOS: 09/27/23 Technique: Multidetector spiral CT of the abdomen and pelvis was performed from lung bases to pubic symphysis. Imaging was performed without IV contrast. Axial, coronal and sagittal multiplanar reformats were obtained from the axial data set by the technologist. Radiation dose : Abdomen/Pelvis: CTDIvol 26.76 mGy, DLP 1484.0 mGy*cm. Findings: Evaluation of solid organs is limited due to lack of intravenous contrast use. Lung Bases: No acute or significant lung base finding. Normal heart size. No pleural or pericardial effusion. Liver: The liver is normal in size. No focal lesions. Gallbladder and biliary Tree: Cholelithiasis noted without secondary findings of cholecystitis or biliary obstruction. Spleen: Unremarkable Pancreas: The pancreas is grossly normal in appearance. Adrenal Glands: Right adrenal nodules measuring 20 mm and 10 mm. Kidneys: Kidneys are grossly normal without calculi or hydronephrosis. Bladder: Grossly unremarkable for degree of distention. Bowel: The stomach is grossly normal in appearance. There is mild wall thickening of the descending colon with adjacent stranding. There is an abnormal loop of small bowel in the right upper quadrant with wall thickening, adjacent stranding and adjacent prominent mesenteric lymph nodes. Normal appendix is visualized in the right lower quadrant without findings of appendicitis. Ascites: Trace perisplenic ascites. Lymphadenopathy: Prominent mesenteric lymph nodes, largest measuring up to 10 mm in short axis. Abdominal wall and Mesentery: Postsurgical changes. Vasculature: The visualized abdominal aorta is normal in size and caliber. Evaluation of abdominal and pelvic vessels is limited due to lack of intravenous contrast. Pelvic Organs: Unremarkable Musculoskeletal: No aggressive focal bony lesions, acute fractures or dislocation. IMPRESSION: 1. Abnormal loop of small bowel in the right upper quadrant with associated wall thickening, mesenteric stranding, and mesenteric lymphadenopathy. Findings could be infectious / inflammatory. Underlying neoplasm is not entirely excluded. Clinical correlation and continued follow-up is recommended. This could be further evaluated with intravenous and/or oral contrast. Consider small-bowel follow-through. 2. Mild wall thickening of the descending colon with adjacent stranding could be related to colitis or underdistention. Trace perisplenic ascites. Cholelithiasis. Stable right adrenal nodules. Radiation optimization: All CT scans at this facility use at least one of these dose optimization techniques: Automated exposure control mA and/or kV adjustment per patient size (includes targeted exams where dose is matched to clinical indication) or iterative reconstruction. HS:Y ATED BY: TAHIR HAUSER MD DICTATED DATE/TIME: 11/06/24 1052 PATIENT: MICHEAL ODOM ACCT: [id number] UNIT: [id number] : 1960 LOC: [facility] ROOM / BED: [address] [place] [address] / A AGE / SEX: 64 / F ADM STATUS: ADM IN SERVICE 1235 ORDERING PHYSICIAN: KELLIE CARPENTER RESIDENT PROCEDURE(s): GBUS - GALLBLADDER REASON: rule out acute cholecystitis ORDER NUMBER(s): [id number], ACCESSION NUMBER(s): [id number] INDICATION: rule out acute cholecystitis TECHNIQUE: Multiple real-time sonographic images were obtained of the right upper quadrant. COMPARISON: US ABDOMEN LIMITED on DOS: 12/13/23 FINDINGS: The liver demonstrates heterogeneous echotexture without focal mass lesions. The liver measures 20cm. There is no intrahepatic or extrahepatic ductal dilatation. The common duct measures 0.5 mm. Gallstones are present The gallbladder wall measures 0.3 mm and is within normal limits. The right kidney measures 13 cm. The right kidney is normal in contour, size, and shape. The echogenicity is normal. There is no hydronephrosis. The pancreas is not well visualized due to overlying bowel gas. IMPRESSION: Cholelithiasis Hepatic steatosis/hepatomegaly. Trace right pleural effusion. ATED BY: LUIS YEBOAH MD DICTATED DATE/TIME: 11/05/24 1424 PATIENT: MICHEAL ODOM ACCT: [id number] UNIT: [id number] : 1960 LOC: ER ROOM / BED: / AGE / SEX: 64 / F ADM STATUS: REG ER SERVICE 1557 ORDERING PHYSICIAN: TANVI HUNT MD PROCEDURE(s): HWOCT - HEAD WITHOUT CONTRAST REASON: dizzy ORDER NUMBER(s): [id number], ACCESSION NUMBER(s): [id number] EXAM: CT HEAD WITHOUT CONTRAST INDICATION: Dizzy TECHNIQUE: CT of the head without intravenous contrast. Coronal and sagittal reformatted images are submitted. Radiation Dose : 1. Head: CT Dose: CTDI volume is 54.28 mGy. Dose-length product is 978.84 mGy*cm The dose indicators for CT are the volume Computed Tomography (CT) Dose Index (CTDIvol) and the Dose Length Product (DLP), and are measured in units of mGy and mGy-cm, respectively. These indicators are not patient dose, but values generated from the CT scanner acquisition factors. The report includes radiation exposure data for exposures received during this examination. All CT scans at this medical facility are performed using dose modulation techniques as appropriate to a performed exam including the following: Automated exposure control was utilized; adjustment of the MA and/or KV according to patient size; and use of iterative reconstruction technique. COMPARISON: None FINDINGS: There is no evidence of acute intracranial hemorrhage, extra-axial collection, mass effect, midline shift, herniation or hydrocephalus. The ventricles, sulci and cisterns are age appropriate. The low-white differentiation is intact. The visualized paranasal sinuses and mastoid air cells are clear. No depressed calvarial fracture. The surrounding soft tissues are unremarkable. IMPRESSION: 1. No evidence of acute intracranial abnormality. HS:Y ATED BY: TUNG PEDROZA MD DICTATED DATE/TIME: 11/04/24 1638 Laboratory Results Test 11/07/24 08:34 11/06/24 07:16 11/05/24 12:44 11/05/24 05:45 White Blood Count 6.6 10^3/uL (4.4-10.8) Red Blood Count 4.79 10^6/uL (4.0-5.20) Hemoglobin 12.9 g/dL (12.2-16.2) Hematocrit 41.1 % (36.0-46.0) Mean Corpuscular Volume 85.8 fL (80.0-100.0) Mean Corpuscular Hemoglobin 27.0 pg (28.0-32.0) Mean Corpuscular Hemoglobin Concent 31.4 g/dL (32.0-36.0) Red Cell Distribution Width 14.3 % (11.8-14.3) Platelet Count 268 10^3/uL (140-450) Mean Platelet Volume 7.3 fL (6.9-10.8) Neutrophils (%) (Auto) 45.2 % (37.0-80.0) Lymphocytes (%) (Auto) 45.4 % (10.0-50.0) Monocytes (%) (Auto) 7.6 % (0.0-12.0) Eosinophils (%) (Auto) 1.3 % (0.0-7.0) Basophils (%) (Auto) 0.5 % (0.0-2.0) Neutrophils # (Auto) 3.0 10 ^3/uL (1.6-8.6) Lymphocytes # (Auto) 3.0 10 ^3/uL (0.4-5.4) Monocytes # (Auto) 0.5 10 ^3/uL (0-1.3) Eosinophils # (Auto) 0.1 10 ^3/uL (0-0.8) Basophils # (Auto) 0 10 ^3/uL (0-0.2) Nucleated Red Blood Cells 0.1 % Sodium Level 142 mmol/L (136-145) Potassium Level 4.2 mmol/L (3.5-5.1) Chloride Level 109 mmol/L (98-107) Carbon Dioxide Level 25 mmol/L (20-31) Anion Gap 8 (5-15) Blood Urea Nitrogen 11 mg/dL (9-23) Creatinine 0.54 mg/dL (0.550-1.02) Glomerular Filtration Rate Calc 102 mL/min (>90) BUN/Creatinine Ratio 20.4 (10.0-20.0) Serum Glucose 109 mg/dL (74-106) Calcium Level 9.5 mg/dL (8.7-10.4) Total Bilirubin 0.5 mg/dL (0.2-1.0) Aspartate Amino Transferase (AST) 15 U/L (13-40) Alanine Aminotransferase (ALT) 16 U/L (7-40) Alkaline Phosphatase 107 U/L (46-116) Total Protein 6.3 g/dL (5.7-8.2) Albumin 4.0 g/dL (3.2-4.8) Lipase 28 U/L (12-53) Urine Color Light-yellow (Yellow) Urine Clarity Clear (Clear) Urine pH 6.5 (5.0-9.0) Urine Specific [place] 1.013 (1.001-1.035) Urine Protein Negative (Negative) Urine Ketones Negative (Negative) Urine Blood Negative /uL (Negative) Urine Nitrite Negative (Negative) Urine Bilirubin Negative (Negative) Urine Urobilinogen Normal mg/dL (Negative) Urine Leukocyte Esterase 2+ /uL (Negative) Urine RBC 1 /hpf (0 - 4) Urine Microscopic WBC 13 /HPF (0-5) Urine Squamous Epithelial Cells Few /hpf (<5) Urine Bacteria None seen /hpf (None Seen) Urine Glucose Normal mg/dL (Normal) Hemoglobin A1c 5.4 % A1C (<5.7) Test 11/04/24 16:07 11/04/24 15:50 Troponin I High Sensitivity < 3 ng/L (</=34) POC Glucose 178 mg/dl (70-106) Other Laboratory Tests 11/07/24 08:34 Brief Hx & Hospital Course: History of Presenting illness 64-year-old female came to the ER stating that she has been having dizziness for the past five months on and off. Dizziness is more so since last night. Aggravated by looking up. She has not seen any physician for her dizziness. Her blood pressure on arrival was 150/112 with a heart rate of 110. She mentioned to me that she has blurry vision. Patient denies history of hypertension diabetes. Denies chest pain. She does have shortness a breath upon walking. 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 Her blood pressure on admission was markedly elevated and she had dizziness as well. She was diagnosed of BPPV a week prior. Patient also complained of left lower abdominal pain and right shoulder pain. We obtained blood work which was negative for leukocytosis and pancreatitis. Imagining studies was negative for acute cholecystitis and any acute intracranial lesions. CT abdomen showed Abnormal loop of small bowel in the right upper quadrant with associated wall thickening, mesenteric stranding, and mesenteric lymphadenopathy. "Findings could be infectious / inflammatory. Underlying neoplasm is not entirely excluded. This could be further evaluated with intravenous and/or oral contrast.Consider small-bowel follow-through. Mild wall thickening of the descending colon with adjacent stranding could be related to colitis or underdistention. Trace perisplenic ascites. Cholelithiasis. Stable right adrenal nodules". We managed for the hypertension with iv lisinopril, Meclizine for the dizziness, antibiotics for the possible colitis. Patient feeling better. BP is much controlled. The abdominal pain is mild or only intermittent. Will discharge home today and have her follow up at discharge clinic in a week. Also, patient has never had a colonoscopy. We advised the patient to make an appointment with the GI physical of colonoscopy in the near future Review of symptoms Constitutional: Denies fever no chills no feeling of malaise HEENT:mild headache, ear pain, ear discharges, conjunctivitis, nasal discharge throat pain Cardiovascular: Denies chest pain, palpitation, orthopnea, PND, or pedal edema Respiratory: Denies shortness of breath, cough cough, sputum production, hemoptysis, GI: Mild abdominal pain, nausea, vomiting, diarrhea, hematemesis, hematochezia, : Denies frequency, urgency, hematuria, Endocrine: Denies unintentional weight gain or weight loss, feeling of hot flashes, Elder: Denies easy bruising, bleeding disorders, epistaxis Musculoskeletal: Denies joint pains, muscle aches Psych: No evidence of depression, domenica, suicidal ideation Examination General Appearance: Alert, Oriented X3, Cooperative, No acute distress HEENT: Atraumatic, PERRLA, EOMI, Mucous membrane moist/pink Respiratory: Clear to auscultation, Normal air movement Cardiovascular: Regular rate, Normal S1, Normal S2, No murmurs, no chest wall tenderness Abdominal: Left lower quadrant tenderness (Improved), bowel sounds present Extremities: No clubbing, No cyanosis, No edema, Normal pulses, No tenderness/swelling Skin: No rashes, No breakdown, No significant lesion Neuro: Normal gait, Normal speech, Strength at 5/5 X4 ext, Normal tone, Sensation intact, Cranial nerves 3-12 NL, Reflexes 2+ Psych/Mental Status: Mental status NL, Mood NL Diagnoses Hypertensive urgency--> Improved Benign paroxysmal positional vertigo Dizziness cholelithiasis Obesity Grade 2 Asymptomatic pyuria Possible colitis vs ?neoplasm Mesenteric lymphadenopathy Hepatic steatosis/hepatomegaly Stable right adrenal nodules. Discharge planning Discharge home Home with antibiotics for 5 days ( ciprofloxacin and metronidazole) Continue Lisinopril Continue the meclizine Follow up at the Discharge clinic in 7 days Extensively advised patient to comply with her medications Recommended a visit to the GI physicians for outpatient Colonoscopy Case and plan discussed with Dr. Ramesh. Condition at Discharge: Good Final Diagnosis/Problems List Hypertensive urgency--> Improved BPPV Dizziness Cholelithiasis Stable right adrenal nodules. Obesity Grade 2 Asymptomatic pyuria Colitis vs ?neoplasm Mesenteric lymphadenopathy epatic steatosis/hepatomegaly Discharge Disposition: Home Discharge Instruct/Medications Diet: Cardiac 2g Na,low cholest Diet comment: less salt in the diet Activity: No Restrictions, As Tolerated Follow Up/Referral: 7 days at the discharge clinic Medications: Lisinopril Meclizine levofloxacin metronidazole 500 mg Discharge Statement: "Patient was advised to return to the ER or call 911 if any headaches, dizziness, shortness of breath, chest pain, abdominal pain, bleeding, fevers, or worsening of medical condition. Patient was counseled about treatment plan, medications, possible side effects, patientverbalized understanding. All questions were answered to the best of my ability. This discharge took greater then 30 minutes in planning, reviewing documentation, counseling the patient, and discussing with other team members." ASSESSMENT ASSESSMENT Assessment Hypertensive urgency--> Improved Dizziness cholelithiasis Obesity Grade 2 Asymptomatic pyuria Colitis vs ?neoplasm Mesenteric lymphadenopathy Hepatic steatosis/hepatomegaly KELLIE CARPENTER RESIDENT Nov 07, 2024 14:17
[2024-11-08] MEDS ORDERED: CIPR500T4 PO (11:51)
--- NOTE | 2024-11-10 21:54 | DVHSR ---
APPROVED REPORT EXAM: Two-dimensional and M-mode echocardiogram with Doppler and color Doppler. Blood Pressure: 99/59 mmHg INDICATION Hypertensive urgency RISK FACTORS Height: 69, Weight: 255 DIMENSIONS LVDd4.1 (3.8-5.7cm)LA (2D)4.4 (1.9-4.0cm)Aortic Root3.9 (2.0-3.7cm) LVDs2.9 (2.5-4.0cm)LA (MM) (1.9-4.0cm)Aortic Cusp Exc1.8 (1.5-2.0cm) EF (%) 57.0 (55-70%)Rt. Atrium4.1 (1.9-4.0cm)Asc. Aorta cm IVSd0.9 (0.7-1.1cm)RV (D) (1.8-2.4cm) PWd1.0 (0.7-1.1cm) Mitral Valve MitralMitral Stenosis E wave0.52m/sMV Mean GR.mmHg A wave0.82m/sMV Peak GR.mmHg E/A ratio0.62D MVAcm2 DECEL [id number] 1/2 [id number] IVRTmsDop MVA3.47cm2 Aortic Valve Aortic ValveAortic Stenosis V10.97m/Matias Mean GR.3mmHg V21.19m/Matias Peak GR.6mmHg LVOT Diameter2.1 (1.8-2.4cm)Doppler AVA2.82cm2 Pulmonic Valve V21.02m/s Other Information Technically limited study due to body habitus. Conclusion LV EF IS 65% AND IS NORMAL NORMAL RV FUNCTION SLIGHTLY DILATED RA NORMAL VALVES NO EFFUSION
== END 2024-11-07 16:25 | disposition home or self-care (01) | DRG 305 ==
LOC: ER 15:41 → OVERFLOW 20:20 → WEST WING 11-05 22:22
PROVIDERS: ADMIT Student in an Organized Health Care Education/Training Program; ATTEND Student in an Organized Health Care Education/Training Program
DX: I16.1 Hypertensive emergency (principal); F41.9 Anxiety disorder, unspecified; K80.20 Calculus of gallbladder without cholecystitis without obstruction; K52.9 Noninfective gastroenteritis and colitis, unspecified; G90.89 Other disorders of autonomic nervous system; E66.812 Obesity, class 2; R16.0 Hepatomegaly, not elsewhere classified; K76.0 Fatty (change of) liver, not elsewhere classified; R59.1 Generalized enlarged lymph nodes; E11.9 Type 2 diabetes mellitus without complications; Z79.899 Other long term (current) drug therapy; Z90.710 Acquired absence of both cervix and uterus; Z98.51 Tubal ligation status; Z68.37 Body mass index [BMI] 37.0-37.9, adult
CPT/HCPCS: 36415; 70450; 74176; 76705; 80048; 80053; 81001; 82962; 83036; 83690; 84484; 85025; 93005; 93306; 99291; 99292; G0378; J3490

== ENCOUNTER 2025-02-09 07:45 | Emergency (ER) | payer OTHER, MEDICAID ==
[~2025-02-09] VITALS: Ht 175.3 cm; Wt 111.9 kg
[~2025-02-09 07:45] MED LIST changes: +ACET-1882 PO; +CIPR500T4 PO; +DOCU-265 PO; +IBUP-1455 PO; +LISI-275 PO; +MECL-126 PO; +MECL-90 PO; +METR-344 PO
--- NOTE | 2025-02-09 08:41 | ED.PDOC ---
GI ASSESSMENT HPI Comments 64F presents to the Er w/ prior MHx of HTN, Diverticulitis, Gallstones, Collitis: SHx of BTL, Hysterectomy, Tubal Ligation and the c/c of ABD pain. Pt reports on having come to the ER due from her checking her BP and it being 159/90 at home and in triage being a 149/83. Pt states on having left sided pelvic pain for which radiates down to the pictineal line of the pelvic bone, all happening in 3 days. Denies chills, fever, N/V/D, SOB, CP. Chief Complaint: Urinary Time Seen by MD: 08:30 Primary Care Provider: [facility] Reviewed Notes: Nurses Notes, Medications, Allergies Allergies: Coded Allergies: NO KNOWN ALLERGIES (Unverified , 08/26/12) Home Meds Active Scripts Metoclopramide Hcl (Reglan) 10 Mg Tab, 10 MG PO BID for 10 Days, #20 TAB Prov:ROCIO COLON MD 02/09/25 Aluminum Hydroxide-Mag Carb (Gaviscon Extra Strength) 1 Chw Chw, 1 CHW PO 3 imes a day for 10 Days, #30 TAB.CHEW Prov:ROCIO COLON MD 02/09/25 Ciprofloxacin Hcl (Ciprofloxacin Hcl) 500 Mg Tab, 1 TAB PO BID, #10 TAB Prov:KELLIE CARPENTER 11/08/24 Metronidazole (Flagyl) 500 Mg Tab, 500 MG PO TID for 5 Days, #15 TAB Prov:KELLIE CARPENTER 11/07/24 Lisinopril (Lisinopril) 5 Mg Tab, 5 MG PO DAILY for 30 Days, #30 TAB Prov:KELLIE CARPENTER 11/07/24 Docusate Sodium (Docusate Sodium) 100 Mg Cap, 100 MG PO BIDPRN PRN for 30 Days, #30 CAP Prov:KELLIE CARPENTER 11/07/24 Acetaminophen (Acetaminophen) 325 Mg Tab, 325 MG PO Q4HP PRN for 30 Days, #30 TAB Prov:KELLIE CARPENTER 11/07/24 Hydrocodone-Acetaminophen (Hydrocodone Bitartrate/AC 5-325 mg) 1 Tab Tab, 1 TAB PO DAILYP PRN for 3 Days, #3 TAB 0 Refills Prov:ANNEMARIE NINA NP 12/13/23 Pantoprazole Sodium Sesquihydr (Protonix) 40 Mg Tab, 40 MG PO DAILY for 10 Days, #10 TAB Prov:TANVI HUNT MD 09/27/23 Reported Medications Meclizine HCl (Meclizine Hydrochloride) 25 Mg Tab, TAB PO 11/06/24 Ibuprofen Micronized (Ibuprofen) 800 Mg Tab, 1 TAB PO TID 11/06/24 Meclizine Hcl (Meclizine Hcl) 25 Mg Tab, 1 TAB PO TID for dizziness 11/06/24 Information Source: Patient Mode of Arrival: Ambulatory Timing: Days Duration: Since onset, Days Prehospital treatment: None Quality: Aching Vomitus: None Stool: Normal Severity: Moderate Recent Hx of: None Pain Location: LLQ Associated sign and symptoms: Abdominal Pain Past Medical History PAST MEDICAL HISTORY: Gallstones, HTN Past Medical History (Other): diverticulitis Surgical History: BTL, Hysterectomy, Tubal Ligation 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 Family History Family History: Reviewed,noncontributory to illness, Unknown Social History Smoker: Non-Smoker Alcohol: Denies ETOH Use Drugs: Denies Drug Use Lives In: Home Constitutional: denies: chills, diaphoresis, fatigue, fever, malaise, sweats, weakness, others EENTM: denies: blurred vision, double vision, ear bleeding, ear discharge, ear drainage, ear pain, ear ringing, eye pain, eye redness, hearing loss, mouth pain, mouth swelling, nasal discharge, nose bleeding, nose congestion, nose pain, photophobia, tearing, throat pain, throat swelling, voice changes, others Respiratory: denies: cough, hemoptysis, orthopnea, SOB at rest, shortness of breath, SOB with excertion, stridor, wheezing, others Cardiovascular: denies: chest pain, dizzy spells, diaphoresis, Dyspnea on exertion, edema, irregular heart beat, left arm pain, lightheadedness, pal pitations, PND, syncope, others Gastrointestinal: reports: abdominal pain; denies: abdomen distended, blood streaked bowels, constipated, diarrhea, dysphagia, difficulty swallowing, hematemesis, melena, nausea, poor appetite, poor fluid intake, rectal bleeding, rectal pain, vomiting, others Genitourinary: denies: abnormal vagina bleeding, burning, dyspareunia, dysuria, flank pain, frequency, hematuria, incontinence, pain, , vagina disc harge, urgency, others Neurological: denies: dizziness, fainting, headache, left sided numbness, left sided weakness, numbness, paresthesia, pre-existing deficit, right sided numbness, right sided weakness, seizure, speech problems, tingling, tremors, weakness, others Musculoskeletal: denies: back pain, gout, joint pain, joint swelling, muscle pain, muscle stiffness, neck pain, others Integumetry: denies: bruises, change in color, change in hair/nails, dryness, laceration, lesions, lumps, rash, wounds, others Allergic/Immunocompromised: denies: Difficulty Healing, Frequent Infections, Hives, Itching, others Hematologic/Lymphatic: denies: anemia, blood clots, easy bleeding, easy bruising, swollen glands, others Endocrine: denies: excessive hunger, excessive sweating, excessive thirst, excessive urination, flushing, intolerance to cold, intolerance to heat, unexplained weight gain, unexplained weight loss, others Psychiatric: denies: anxiety, bipolar disorder, depression, hopeless, panic disorder, schizophrenia, sleepless, suicidal, others All Other Systems: Reviewed and Negative Physical Exam General Appearance: Obese HEENT: Normal ENT Inspection, PERRL/EOMI, Pharynx Normal, TMs Normal Neck: Full Range of Motion, Non-Tender, Normal, Normal Inspection Respiratory: Chest Non-Tender, Lungs Clear, No Accessory Muscle Use, No Respiratory Distress, Normal Breath Sounds Cardiovascular: No Edema, No JVD, No Murmur, No Gallop, Normal Peripheral Pulses, Regular Rate/Rhythm Breast Exam: Deferred Gastrointestinal: Diffuse, LLQ, No Organomegaly, No Pulsatile Mass, Normal Bowel Sounds, RLQ, Suprapubic, Tenderness Genitalia: Deferred Pelvic: Deferred Rectal: Deferred Extremities: No calf tenderness, Normal capillary refill, Normal inspection, Normal range of motion, Non-tender, No pedal edema Musculoskeletal : Apperance: Normal Neurologic: Alert, sr technical sales consultant II-XII nml as Tested, No Motor Deficits, Normal Affect, Normal Mood, No Sensory Deficits Cerebellar Function: Normal Reflexes: Normal Skin: Dry, Normal Color, Warm Peripheral Pulses: 1+ carotid (R), 1+ carotid (L) Lymphatic: No Adenopathy Was a procedure done? Was a procedure done?: No GI differential Dx Differential Diagnosis: Appendicitis, Cholecystitis, Constipation, Diverticular disease, Gastritis/PUD, Gastroenteritis, Hernia, Inflammatory BD, UTI, Dehydration, Diabetes/ DKA, Drug toxicity, Electrolyte Imbalance, Hypovolemia, Mass, Anemia X-Ray, Labs, Meds, VS Vital Signs Date Time Temp Pulse Resp B/P (MAP) Pulse Ox O2 Delivery O2 Flow Rate FiO2 02/09/25 13:14 97.9 85 14 147/91 (109) 96 97.9 02/09/25 09:15 111 16 96 Room Air* 0 21 02/09/25 09:03 118 16 94 Room Air 02/09/25 09:03 98.4 118 16 146/70 (95) 94 98.4 02/09/25 08:01 98.9 125 20 149/83 (105) 97 98.9 Lab Test 02/09/25 09:00 02/09/25 08:44 Range/Units Urine Color Yellow Yellow Urine Clarity Turbid H Clear Urine pH 5.5 5.0-9.0 Urine Specific [place] 1.027 1.001-1.035 Urine Protein Trace H Negative Urine Ketones Negative Negative Urine Blood Negative Negative /uL Urine Nitrite Negative Negative Urine Bilirubin Negative Negative Urine Urobilinogen 2 H Negative mg/dL Urine Leukocyte Esterase 1+ Negative /uL Urine RBC 1 0 - 4 /hpf Urine Microscopic WBC 2 0-5 /HPF Urine Squamous Epithelial Cells Few <5 /hpf Urine Calcium Oxalate Crystals Mod None Seen Urine Bacteria None seen None Seen /hpf Urine Mucus Few None Seen Urine Glucose Normal Normal mg/dL White Blood Count 8.8 4.4-10.8 10^3/uL Red Blood Count 5.28 H 4.0-5.20 10^6/uL Hemoglobin 14.4 12.2-16.2 g/dL Hematocrit 44.3 36.0-46.0 % Mean Corpuscular Volume 83.9 80.0-100.0 fL Mean Corpuscular Hemoglobin 27.2 L 28.0-32.0 pg Mean Corpuscular Hemoglobin Concent 32.4 32.0-36.0 g/dL Red Cell Distribution Width 14.5 H 11.8-14.3 % Platelet Count 325 140-450 10^3/uL Mean Platelet Volume 7.6 6.9-10.8 fL Neutrophils (%) (Auto) 64.3 37.0-80.0 % Lymphocytes (%) (Auto) 29.0 10.0-50.0 % Monocytes (%) (Auto) 5.6 0.0-12.0 % Eosinophils (%) (Auto) 0.5 0.0-7.0 % Basophils (%) (Auto) 0.6 0.0-2.0 % Neutrophils # (Auto) 5.7 1.6-8.6 10 ^3/uL Lymphocytes # (Auto) 2.6 0.4-5.4 10 ^3/uL Monocytes # (Auto) 0.5 0-1.3 10 ^3/uL Eosinophils # (Auto) 0 0-0.8 10 ^3/uL Basophils # (Auto) 0.1 0-0.2 10 ^3/uL Nucleated Red Blood Cells 0.1 % Sodium Level 142 136-145 mmol/L Potassium Level 3.9 3.5-5.1 mmol/L Chloride Level 107 98-107 mmol/L Carbon Dioxide Level 29 20-31 mmol/L Anion Gap 6 5-15 Blood Urea Nitrogen 8 L 9-23 mg/dL Creatinine 0.67 0.550-1.02 mg/dL Glomerular Filtration Rate Calc 97 >90 mL/min BUN/Creatinine Ratio 11.9 10.0-20.0 Serum Glucose 126 H 74-106 mg/dL Calcium Level 9.5 8.7-10.4 mg/dL Magnesium Level 1.9 1.6-2.6 mg/dL Total Bilirubin 0.4 0.2-1.0 mg/dL Aspartate Amino Transferase (AST) 14 13-40 U/L Alanine Aminotransferase (ALT) 14 7-40 U/L Alkaline Phosphatase 108 46-116 U/L Total Protein 7.1 5.7-8.2 g/dL Albumin 4.5 3.2-4.8 g/dL Lipase 28 12-53 U/L Current Medications Medications (Trade) Dose Ordered Sig/John Route Start Time Stop Time Status Last Admin Sodium Chloride 500 ml @ 500 mls/hr Q1H ONCE IVB 02/09/25 08:45 02/09/25 09:44 DC 02/09/25 08:45 Ketorolac Tromethamine (Toradol Injection) 30 mg ONCE ONCE IV 02/09/25 08:45 02/09/25 08:46 DC 02/09/25 09:24 X-Ray, Labs, Meds, VS Comment Course in the emergency department eventful patient came in complaining of hypertension urinary tract infection headache and nausea she has history of GERD hypertension vertigo gallstone and colitis The blood pressure is 149/83 CBC is normal urine is normal CMP is negative CT abdomen and pelvis shows adrenal gland with a nodule Enteritis gallstones Time of 1ST Reevaluation: 09:00 Reevaluation 1ST: Unchanged Patient Education/Counseling: Diagnosis, Treatment, Prognosis, Need For Follow Up Family Education/Counseling: Diagnosis, Treatment, Prognosis, Need For Follow Up, No Family Present SEPSIS Sepsis Screen Date sepsis recognized/suspect: Feb 09, 2025 Time Sepsis recognized/suspect: 801 Recent Procedure: No On Antibiotic Therapy: No Respiratory Rate >20: No Heart Rate >90: Yes Temp<36 C (96.8 F) or >38.3 C: No SBP <90 or MAP <65 mmHG: No New Acute Mental Status Change: No Is the patient on CPAP, BIPAP,: No Physician Orders Ct Ab Pel With Iv Con Only (02/09/25 08:35) Heplock Iv (02/09/25 08:35) Blood Pressure (02/09/25 08:35) Vital Signs Date Time Temp Pulse Resp B/P (MAP) Pulse Ox O2 Delivery O2 Flow Rate FiO2 02/09/25 13:14 97.9 85 14 147/91 (109) 96 97.9 02/09/25 09:15 111 16 96 Room Air* 0 21 02/09/25 09:03 118 16 94 Room Air 02/09/25 09:03 98.4 118 16 146/70 (95) 94 98.4 02/09/25 08:01 98.9 125 20 149/83 (105) 97 98.9 Laboratory Tests Test 02/09/25 08:44 White Blood Count 8.8 10^3/uL (4.4-10.8) Medications Medications Dose Ordered Sig/John Route Start Time Stop Time Status Last Admin Dose Admin Ketorolac Tromethamine 30 mg ONCE ONCE IV 02/09/25 08:45 02/09/25 08:46 DC 02/09/25 09:24 Sodium Chloride 500 ml @ 500 mls/hr Q1H ONCE IVB 02/09/25 08:45 02/09/25 09:44 DC 02/09/25 08:45 Departure 1 Departure Time of Disposition: 12:55 Impression: Primary Impression: Nonspecific abdominal pain Additional Impressions: Adrenal nodule Cholelithiasis Disposition: HOME / SELF CARE / HOMELESS Condition: Fair Additional Instructions: Fluids and follow up with your PCP e-Prescriptions Metoclopramide Hcl (Reglan) 10 Mg Tab 10 MG PO BID for 10 Days, #20 TAB Prov: ROCIO COLON MD 02/09/25 Aluminum Hydroxide-Mag Carb (Gaviscon Extra Strength) 1 Chw Chw 1 CHW PO 3 imes a day for 10 Days, #30 TAB.CHEW Prov: ROCIO COLON MD 02/09/25 Discharged With: Self Critical Care Note Critical Care Time?: No Stability Stability form required: No Heart Score Heart Score: Heart Score Response (Comments) Value History N/A 0 EKG N/A 0 Age >65 2 Risk Factors 1 or 2 risk factors 1 Troponin N/A 0 Total 3 I personally scribed for ROCIO COLON MD ([email or web address]) on 02/09/25 at 08:41. Electronically submitted by Ra Uribe ([email or web address]). ROCIO COLON MD Feb 09, 2025 08:41
[2025-02-09] MEDS: SODIUM CHLORIDE 0.9% 500 ML IVB ONE (08:45)
[2025-02-09 09:13] LABS: Hematocrit 44.3 % (36.0-46.0); Hemoglobin 14.4 g/dL (12.2-16.2); Mean Corpuscular Hemoglobin 27.2 pg (28.0-32.0); Mean Corpuscular Volume 83.9 fL (80.0-100.0); Nucleated Red Blood Cells % 0.1 %
[2025-02-09 09:15] VITALS: PULSE 111; RESP 16; O2SAT 96
[2025-02-09] MEDS: KETOROLAC TROMETH 30 MG/ML 1ML VIAL IV ONE (09:24)
[2025-02-09] MEDS: METOCLOPRAMIDE HCL 5MG/ml INJ 2ml VIAL IV ONE (09:26)
[2025-02-09 09:28] LABS: Alanine Aminotransferase 14 U/L (7-40); Alkaline Phosphatase 108 U/L (46-116); Calcium 9.5 mg/dL (8.7-10.4); Carbon Dioxide 29 mmol/L (20-31); Chloride 107 mmol/L (98-107); Lipase 28 U/L (12-53); Magnesium 1.9 mg/dL (1.6-2.6); Potassium 3.9 mmol/L (3.5-5.1)
[2025-02-09 09:29] LABS: Albumin 4.5 g/dL (3.2-4.8); Anion Gap 6 (5-15); BUN/Creatinine Ratio 11.9 (10.0-20.0); Bilirubin, Total 0.4 mg/dL (0.2-1.0); Blood Urea Nitrogen 8 mg/dL (9-23); Glucose 126 mg/dL (74-106); Sodium 142 mmol/L (136-145); Total Protein 7.1 g/dL (5.7-8.2)
[2025-02-09 09:49] LABS: Urine Protein, UAD TRACE (Negative)
[2025-02-09] MEDS: IOHEXOL 300 MG/ML 100ML BOTTLE IJ ONE (10:12)
--- NOTE | 2025-02-09 10:25 | DVH ---
CT CT AB PEL WITH IV CON ONLY INDICATION: Diffuse abdominal pain EXAM DATE: 02/09/2025 09:47 AM COMPARISON: 11/06 RADIATION DOSE: CTDIvol: 27 mGy, DLP: 1364 mGy*cm PROCEDURE: Helical CT images were obtained of the abdomen and pelvis with IV contrast Sagittal and co tay reconstructions are provided. ORAL CONTRAST: None. ADDITIONAL IMAGES / REFORMATS: None All CT s cans at this medical facility are performed using dose modulation techniques as appropriate to a perf ormed exam including the following: Automated exposure control was utilized; adjustment of the MA and /or KV according to patient size; and use of iterative reconstruction technique. FINDINGS: LUNG BASE: Normal. LIVER: Normal. Trace perihepatic fluid. GALLBLADDER AND BILIARY TREE: There is a gallstone in the gallbladder. No intra- or extrahepatic bili alka ductal dilation. PANCREAS: Normal. SPLEEN: Normal. BOWEL: Mildly prominent loop of small bowel with adjacent fat stranding and fluid.. The appendix appe ars normal. ADRENALS: There is a 2.2cm right adrenal nodule. KIDNEYS AND URETER: Normal. BLADDER: Normal. REPRODUCTIVE ORGANS: The uterus is absent. LYMPH NODES:No lymphadenopathy. PERITONEUM: No ascites or free air. No other fluid collection. There is trace pelvic fluid. VESSELS: Scattered atherosclerotic calcifications are noted. RETROPERITONEUM: Normal. ABDOMINAL WALL: Normal. BONES: Scattered osseous degenerative changes are noted. IMPRESSION: Mildly prominent loop of small bowel with adjacent fat stranding and fluid could be mild enteritis . Cholelithiasis.
[2025-02-09] MEDS ORDERED: ALUMCHW6 PO (12:58)
[2025-02-09] MEDS ORDERED: METO-281 PO (12:58)
[2025-02-09 13:14] VITALS: BP 147/91; PULSE 85; RESP 14; TEMP 97.9; O2SAT 96
== END 2025-02-09 13:15 | disposition home or self-care (01) ==
LOC: ER 07:45
DX: K80.20 Calculus of gallbladder without cholecystitis without obstruction (principal); E27.9 Disorder of adrenal gland, unspecified; R10.9 Unspecified abdominal pain; I10 Essential (primary) hypertension; Z90.710 Acquired absence of both cervix and uterus; Z79.899 Other long term (current) drug therapy
CPT/HCPCS: 36415; 74177; 80053; 81001; 83690; 83735; 85025; 96374; 99285; J1885; Q9967

== ENCOUNTER 2025-05-21 19:25 | Emergency (ER) | payer BC, MEDICAID ==
[~2025-05-21] VITALS: Ht 175.3 cm; Wt 108.3 kg
[~2025-05-21 19:25] MED LIST changes: +ALUMCHW6 PO; +METO-281 PO
--- NOTE | 2025-05-21 20:15 | DVH ---
CLINICAL HISTORY: headache TECHNIQUE: Helical scanning was performed of the head from the skull base to the vertex. Multiplanar reconstructions were performed. This exam was performed according to our departmental dose optimizat ion program. Up-to-date CT equipment and radiation dose reduction techniques are utilized as appropri ate. CTDI 58 DLP 1048 COMPARISON: CT HEAD WITHOUT CONTRAST on DOS: 11/04/24 FINDINGS: There is no evidence for acute intracranial hemorrhage, acute ischemic changes, mass, mass effect, or extra-axial fluid collection. There is no hydrocephalus or midline shift. There is no effacement of the cerebral sulci and basal subarachnoid cisterns. The low-white matter differentiation is well orly ntained. The imaged paranasal sinuses are clear. IMPRESSION: NO ACUTE INTRACRANIAL ABNORMALITY SEEN.
--- NOTE | 2025-05-21 20:23 | ED.PDOC ---
HPI (NEURO) HPI Comments 64y F who presents to the ED for chief complaint of headache. Pt states she has been having throbbing headache and neck pain since 1300 this afternoon. Pt states earlier this AM while at grocery store and felt lightheaded and dizzy. Pt states he went home and ate lunch and took her HTN lisinopril medication. Pt states her lightheadedness and dizziness went away but states she started to have a headache and neck pain. Pt states the symptoms continued all day and pt came to the ED for evaluation. Pt in the ED, otherwise is alert and oriented x 4 and no noted changes in vision, speech or gait are noted. Pt otherwise has stable vitals in the ED. Chief Complaint: Headache Time Seen by MD: 20:20 Primary Care Provider: 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 Family History Family History: Reviewed,noncontributory to illness, Unknown Social History Smoker: Non-Smoker Alcohol: Denies ETOH Use Drugs: Denies Drug Use Lives In: Home Constitutional: denies: chills, diaphoresis, fatigue, fever, malaise, sweats, weakness, others EENTM: denies: blurred vision, double vision, ear bleeding, ear discharge, ear drainage, ear pain, ear ringing, eye pain, eye redness, hearing loss, mouth pain, mouth swelling, nasal discharge, nose bleeding, nose congestion, nose pain, photophobia, tearing, throat pain, throat swelling, voice changes, others Respiratory: denies: cough, hemoptysis, orthopnea, SOB at rest, shortness of breath, SOB with excertion, stridor, wheezing, others Cardiovascular: denies: chest pain, dizzy spells, diaphoresis, Dyspnea on exertion, edema, irregular heart beat, left arm pain, lightheadedness, palpitations, PND, syncope, others Gastrointestinal: denies: abdomen distended, abdominal pain, blood streaked bowels, constipated, diarrhea, dysphagia, difficulty swallowing, hematemesis, melena, nausea, poor appetite, poor fluid intake, rectal bleeding, rectal pain, vomiting, others Genitourinary: denies: abnormal vagina bleeding, burning, dyspareunia, dysuria, flank pain, frequency, hematuria, incontinence, pain, , vagina discharge, urgency, others Neurological: reports: headache; denies: dizziness, fainting, left sided numbness, left sided weakness, numbness, paresthesia, pre-existing deficit, right sided numbness, right sided weakness, seizure, speech problems, tingling, tremors, weakness, others Musculoskeletal: reports: neck pain; denies: back pain, gout, joint pain, joint swelling, muscle pain, muscle stiffness, others Integumetry: denies: bruises, change in color, change in hair/nails, dryness, laceration, lesions, lumps, rash, wounds, others Allergic/Immunocompromised: denies: Difficulty Healing, Frequent Infections, Hives, Itching, others Hematologic/Lymphatic: denies: anemia, blood clots, easy bleeding, easy bruising, swollen glands, others Endocrine: denies: excessive hunger, excessive sweating, excessive thirst, excessive urination, flushing, intolerance to cold, intolerance to heat, unexplained weight gain, unexplained weight loss, others Psychiatric: denies: anxiety, bipolar disorder, depression, hopeless, panic disorder, schizophrenia, sleepless, suicidal, others All Other Systems: Reviewed and Negative Physical Exam General Appearance: No Apparent Distress, Normal HEENT: Normal ENT Inspection, Pharynx Normal, TMs Normal Neck: Other ( cervical paraspinal muscle tenderness to palpation ) Respiratory: Chest Non-Tender, Lungs Clear, No Accessory Muscle Use, No Respiratory Distress, Normal Breath Sounds Cardiovascular: No Edema, No JVD, No Murmur, No Gallop, Normal Peripheral Pulses, Regular Rate/Rhythm Breast Exam: Deferred Gastrointestinal: No Organomegaly, Non Tender, No Pulsatile Mass, Normal Bowel Sounds, Soft Genitalia: Deferred Pelvic: Deferred Rectal: Deferred Extremities: No calf tenderness, Normal capillary refill, Normal inspection, Normal range of motion, Non-tender, No pedal edema Musculoskeletal : Apperance: Normal Neurologic: Alert, crew clerk II-XII nml as Tested, No Motor Deficits, Normal Affect, Normal Mood, No Sensory Deficits Cerebellar Function: Normal Reflexes: Normal Skin: Dry, Normal Color, Warm Lymphatic: No Adenopathy Was a procedure done? Was a procedure done?: No Differential Diagnosis (SZ) Seizure: N/A Headache: Cluster, Migraine, Closed Head Injury, Sinusitis, Trigeminal Neuralgia, Other (tension headache) X-Ray, Labs, Meds, VS Vital Signs Date Time Temp Pulse Resp B/P (MAP) Pulse Ox O2 Delivery O2 Flow Rate FiO2 05/21/25 20:33 79 18 97 Room Air* 0 21 05/21/25 20:30 98.2 79 18 150/69 (96) 97 98.2 05/21/25 19:29 98.7 88 16 120/70 98 98.7 Current Medications Medications (Trade) Dose Ordered Sig/John Route Start Time Stop Time Status Last Admin Ketorolac Tromethamine (Toradol Injection) 30 mg ONCE ONCE IM 05/21/25 20:15 05/21/25 20:16 DC 05/21/25 20:38 [place] [address] Ph: [phone] DIAGNOSTIC IMAGING Diagnostic Imaging Report : [id number] Signed PATIENT: MICHEAL ODOM ACCT: [id number] UNIT: [id number] : 1960 LOC: ER ROOM / BED: / AGE / SEX: 64 / F ADM STATUS: REG ER SERVICE 42 ORDERING PHYSICIAN: RADHA COSTELLO PROCEDURE(s): HWOCT - HEAD WITHOUT CONTRAST REASON: headache ORDER NUMBER(s): [id number], ACCESSION NUMBER(s): [id number] CLINICAL HISTORY: headache TECHNIQUE: Helical scanning was performed of the head from the skull base to the vertex. Multiplanar reconstructions were performed. This exam was performed according to our departmental dose optimization program. Up-to-date CT equipment and radiation dose reduction techniques are utilized as appropriate. CTDI 58 DLP 1048 COMPARISON: CT HEAD WITHOUT CONTRAST on DOS: 11/04/24 FINDINGS: There is no evidence for acute intracranial hemorrhage, acute ischemic changes, mass, mass effect, or extra-axial fluid collection. There is no hydrocephalus or midline shift. There is no effacement of the cerebral sulci and basal subarachnoid cisterns. The low-white matter differentiation is well maintained. The imaged paranasal sinuses are clear. IMPRESSION: NO ACUTE INTRACRANIAL ABNORMALITY SEEN. ATED BY: TAMMI KUNZ MD DICTATED DATE/TIME: 05/21/252011 SIGNED BY: TAMMI KUNZ MD SIGNED DATE/TIME: 05/21/252011 CC: X-Ray, Labs, Meds, VS Comment Imaging was reviewed by this provider, there is no obvious pathological or acute disease process. Pending radiology review Labs were reviewed by this provider, no abnormalities Vital signs reviewed by this provider, clinically stable Time of 1ST Reevaluation: 20:50 Reevaluation 1ST: Unchanged Patient Education/Counseling: Diagnosis, Treatment, Need For Follow Up (Follow up with PCP 2-4 days.) Family Education/Counseling: No Family Present Departure 1 Departure Time of Disposition: 20:53 Impression: Primary Impression: Tension headache Disposition: 01 HOME / SELF CARE / HOMELESS Condition: Fair e-Prescriptions Cyclobenzaprine Hcl (Cyclobenzaprine Hcl) 5 Mg Tab 1 TAB PO TID PRN, #30 TAB Prov: KAMAR BLACKWELLP 05/21/25 Discharged With: Self Critical Care Note Critical Care Time?: No Stability Stability form required: No Heart Score Heart Score: Heart Score Response (Comments) Value History N/A 0 EKG N/A 0 Age N/A 0 Risk Factors N/A 0 Troponin N/A 0 Total 0 I personally scribed for KAMAR BLACKWELLP ([email or web address]) on 05/21/25 at 20:23. Electronically submitted by Perez Paige ([email or web address]). I personally scribed for KAMAR BLACKWELL EMPLOYEE WELFARE MANAGER ([email or web address]) on 05/21/25 at 20:35. Electronically submitted by Perez VERONCIA). KAMAR BLACKWELL May 21, 2025 20:23
[2025-05-21 20:33] VITALS: PULSE 79; RESP 18; O2SAT 97
[2025-05-21] MEDS: KETOROLAC TROMETH 30 MG/ML 1ML VIAL IM ONE (20:38)
[2025-05-21] MEDS ORDERED: CYCL-837 PO (20:56)
[2025-05-21 21:34] VITALS: BP 141/69; PULSE 74; RESP 17; TEMP 98.4; O2SAT 98
== END 2025-05-21 21:37 | disposition home or self-care (01) ==
LOC: ER 19:25
DX: G44.209 Tension-type headache, unspecified, not intractable (principal); I10 Essential (primary) hypertension; Z90.710 Acquired absence of both cervix and uterus; Z79.899 Other long term (current) drug therapy
CPT/HCPCS: 70450; 96372; 99285; J1885